=== PATIENT | male | born 1990 | race Hispanic/Latino ===

== ENCOUNTER 2019-01-10 10:22 | Emergency (ER) | payer OTHER ==
[~2019-01-10] VITALS: Ht 165.1 cm; Wt 88.5 kg
--- OUTSIDE RECORDS SUMMARY | 2019-01-10 10:24 | XMS REPORT ---
[facility] Address Unknown Phone Unavailable Care Team Providers Care Material Planner Name Role Phone Unavailable Unavailable Problems This patient has no known problems. Allergies, Adverse Reactions, Alerts This patient has no known allergies or adverse reactions. Medications This patient has no known medications. Encounters Start Date/Time End Date/Time Encounter Type Admission Type Attending [facility] Care Department Encounter ID 2018-01-29 00:00:00 2018-01-29 00:00:00 Outpatient [facility] [id number] 2017-11-02 00:00:00 2017-11-02 00:00:00 Outpatient [facility] [id number] 2017-10-19 13:23:32 2017-10-19 13:23:32 Outpatient [facility] [id number] 2017-09-06 14:11:50 2017-09-06 14:11:50 Outpatient [facility] [id number] 2017-06-15 00:00:00 2017-06-15 00:00:00 Outpatient [facility] [id number] 2017-06-08 10:15:40 2017-06-08 10:15:40 Outpatient [facility] [id number] 2017-06-08 00:00:00 2017-06-08 00:00:00 Outpatient [facility] [id number] 2017-05-08 10:58:53 2017-05-08 10:58:53 Outpatient [facility] [id number] 2017-05-08 00:00:00 2017-05-08 00:00:00 Outpatient [facility] [id number] 2017-04-27 00:00:00 2017-04-27 00:00:00 Outpatient [facility] [id number] 2017-04-05 00:00:00 2017-04-05 00:00:00 Outpatient [facility] [id number] 2017-03-30 16:30:25 2017-03-30 16:30:25 Outpatient [facility] [id number] 2017-03-02 11:37:08 2017-03-02 11:37:08 [facility] [id number]
[2019-01-10] MEDS ORDERED: SODIUM CHLORIDE 0.9% 1000ML 2,000 ML IV STA (10:39)
[2019-01-10 11:05] LABS: CLARITY,URINE SL CLOUDY (CLEAR); COLOR,URINE YELLOW (YELLOW)
[2019-01-10 11:06] LABS: BILIRUBIN,URINE NEGATIVE (NEGATIVE); KETONES,URINE 2+ (NEGATIVE); LEUKOCYTE ESTERASE ,URINE 1+ (NEGATIVE); NITRITE,URINE NEGATIVE (NEGATIVE); PROTEIN,URINE DIPSTICK NEGATIVE (NEGATIVE); URINE UROBILINOGEN 0.2 mg/dL (0.2 - 1)
[2019-01-10 11:07] LABS: AMPHETAMINES SCREEN,URINE NEGATIVE (NEGATIVE); BENZODIAZEPINES SCREEN,URINE NEGATIVE (NEGATIVE); PHENCYCLIDINE SCREEN,URINE NEGATIVE (NEGATIVE)
[2019-01-10 11:22] LABS: BACTERIA,URINE FEW /HPF; EPITHELIAL CELLS,URINE MODERATE /LPF; WBC,URINE (MAN) 21-50 /HPF (0-5)
[2019-01-10] MEDS ORDERED: AZITHROMYCIN 250 MG TAB PO ONE (12:00)
[2019-01-10] MEDS ORDERED: CEFTRIAXONE SOD 1 GM VIAL IM ONE ×2 (12:00→14:00)
[2019-01-10 13:00] LABS: BASOPHILS % 0.3 % (0.0-1.0); EOSINOPHILS # (AUTO) 0.2 (0.0-0.4); EOSINOPHILS % 1.4 % (0.0-6.0); HEMATOCRIT 40.3 % (38.2-49.6); HEMOGLOBIN 14.3 g/dL (14.0-18.0); LYMPHOCYTES % 25.9 % (18.0-39.1); MEAN CORPUSCULAR HEMOGLOBIN 30.4 pg (28-32); MEAN CORPUSCULAR HGB CONC 35.5 g/dL (31-35); MEAN CORPUSCULAR VOLUME 85.6 fL (81-99); MONOCYTES # (AUTO) 0.8 (0.2-0.8); MONOCYTES % 6.8 % (4.4-11.3); NEUTROPHILS # (AUTO) 7.5 (2.1-6.9); NEUTROPHILS % 65.2 % (38.7-80.0); PLATELET COUNT 348 x10e3/uL (140-360); RED BLOOD COUNT 4.71 x10e6/uL (4.3-5.7); RED CELL DISTRIBUTION WIDTH 11.6 % (11.7-14.4)
[2019-01-10 13:14] LABS: ALANINE AMINOTRANSFERASE 13 IU/L (0-55); ALBUMIN 3.8 g/dL (3.5-5.0); ALBUMIN/GLOBULIN RATIO 1.1 (0.8-2.0); ALKALINE PHOSPHATASE 100 IU/L (40-150); ANION GAP 13.9 mmol/L (8-16); BLOOD UREA NITROGEN 8 mg/dL (7-26); BUN/CREATININE RATIO 10 (6-25); CALCIUM 9.8 mg/dL (8.4-10.2); CARBON DIOXIDE 26 mmol/L (22-29); CHLORIDE 97 mmol/L (98-107); EST GLOMERULAR FILTRATION RATE > 60 ML/MIN (60-); POTASSIUM 3.9 mmol/L (3.5-5.1); SODIUM 133 mmol/L (136-145)
[2019-01-10 13:20] LABS: GLUCOSE 442 mg/dL (74-118)
[2019-01-10] MEDS ORDERED: INSULIN REGULAR, HUMAN 100 UNIT/1 ML 3ML VIAL IV ONE (14:30)
== END 2019-01-10 15:16 | disposition home or self-care (01) ==
LOC: ER 10:22
DX: N30.91 Cystitis, unspecified with hematuria (principal); E86.0 Dehydration; E11.65 Type 2 diabetes mellitus with hyperglycemia; E11.22 Type 2 diabetes mellitus with diabetic chronic kidney disease; N18.9 Chronic kidney disease, unspecified; Z89.022 Acquired absence of left finger(s)
CPT/HCPCS: 36415; 80053; 80307; 81001; 82948; 85025; 99284; J0696; J7030

== ENCOUNTER 2019-02-05 23:38 | Inpatient (IN) | payer OTHER ==
[~2019-02-05] VITALS: Ht 167.6 cm; Wt 89.4 kg
[2019-02-06] MEDS ORDERED: ACETAMINOPHEN 325 MG TAB PO ONE
[2019-02-06] MEDS ORDERED: SODIUM CHLORIDE 0.9% 1000ML 1,000 ML IV ONE ×2
[2019-02-06 00:28] LABS: BASOPHILS # (AUTO) 0.1 (0.0-0.1); BASOPHILS % 0.2 % (0.0-1.0); HEMATOCRIT 38.9 % (38.2-49.6); HEMOGLOBIN 14.4 g/dL (14.0-18.0); LYMPHOCYTES # (AUTO) 0.8 (1.0-3.2); LYMPHOCYTES % 2.3 % (18.0-39.1); MEAN CORPUSCULAR HEMOGLOBIN 30.4 pg (28-32); MEAN CORPUSCULAR VOLUME 82.1 fL (81-99); MONOCYTES # (AUTO) 2.6 (0.2-0.8); NEUTROPHILS # (AUTO) 32.3 (2.1-6.9); PLATELET COUNT 341 x10e3/uL (140-360); RED BLOOD COUNT 4.74 x10e6/uL (4.3-5.7); RED CELL DISTRIBUTION WIDTH 11.2 % (11.7-14.4)
[2019-02-06] MEDS ORDERED: PIPER-TAZ 3.375 GM 50 ML IV STA (00:35)
[2019-02-06] MEDS ORDERED: VANCOMYCIN 1GM/NS 250 ML 250 ML IV STA (00:35)
[2019-02-06 00:36] LABS: CLARITY,URINE HAZY (CLEAR); COLOR,URINE YELLOW (YELLOW); LEUKOCYTE ESTERASE ,URINE NEGATIVE (NEGATIVE)
[2019-02-06 00:37] LABS: BILIRUBIN,URINE 1+ (NEGATIVE); KETONES,URINE 3+ (NEGATIVE); NITRITE,URINE NEGATIVE (NEGATIVE); PROTEIN,URINE DIPSTICK TRACE (NEGATIVE); URINE UROBILINOGEN 0.2 mg/dL (0.2 - 1)
[2019-02-06 00:38] LABS: AMPHETAMINES SCREEN,URINE NEGATIVE (NEGATIVE); BENZODIAZEPINES SCREEN,URINE NEGATIVE (NEGATIVE); PHENCYCLIDINE SCREEN,URINE NEGATIVE (NEGATIVE)
[2019-02-06] MEDS ORDERED: ONDANSETRON HCL INJ 2MG/ML 2ML 2 MG/ML VIAL IV STA (00:39)
[2019-02-06 00:47] LABS: BACTERIA,URINE MODERATE /HPF; EPITHELIAL CELLS,URINE FEW /LPF; MUCUS,URINE FEW (RARE); WBC,URINE (MAN) 21-50 /HPF (0-5)
[2019-02-06 00:48] LABS: ALANINE AMINOTRANSFERASE 7 IU/L (0-55); ALBUMIN/GLOBULIN RATIO 1.1 (0.8-2.0); ALKALINE PHOSPHATASE 111 IU/L (40-150); ANION GAP 20.6 mmol/L (8-16); BLOOD UREA NITROGEN 9 mg/dL (7-26); BUN/CREATININE RATIO 10 (6-25); CARBON DIOXIDE 17 mmol/L (22-29); CHLORIDE 94 mmol/L (98-107); EST GLOMERULAR FILTRATION RATE > 60 ML/MIN (60-); POTASSIUM 3.6 mmol/L (3.5-5.1); SODIUM 128 mmol/L (136-145)
[2019-02-06 00:49] LABS: GLUCOSE 493 mg/dL (74-118)
--- NOTE | 2019-02-06 00:52 | Diagnostic Imaging Report ---
Examination: Single AP view of the chest. COMPARISON: None. INDICATION: Fever, pain in boil area IMPRESSION: 1. Lines and Tubes: None 2. Lungs are grossly clear. No consolidation or effusion. 3. Cardiomediastinal silhouette is normal. Pulmonary vasculature is normal. 4. No acute bony abnormalities. Signed by: Dr. Jimmy Espinal M.D. on 02/06/2019 12:49 AM
[2019-02-06] MEDS ORDERED: INSULIN REGULAR, HUMAN 100 UNIT/1 ML 3ML VIAL SQ ONE (01:00)
[2019-02-06] MEDS ORDERED: METFORMIN HCL500 M1 PO (02:09)
[2019-02-06] MEDS ORDERED: BASAGLAR (02:09)
[2019-02-06] MEDS: SODIUM CHLORIDE 0.9% 1000ML 1,000 ML IV SCH ×4 (03:02→21:00)
[2019-02-06 03:05] LABS: BASOPHILS # (AUTO) 0.1 (0.0-0.1); BASOPHILS % 0.2 % (0.0-1.0); EOSINOPHILS # (AUTO) 0.1 (0.0-0.4); EOSINOPHILS % 0.3 % (0.0-6.0); HEMATOCRIT 33.3 % (38.2-49.6); HEMOGLOBIN 12.1 g/dL (14.0-18.0); LYMPHOCYTES # (AUTO) 1.9 (1.0-3.2); MEAN CORPUSCULAR HEMOGLOBIN 30.4 pg (28-32); MEAN CORPUSCULAR HGB CONC 36.3 g/dL (31-35); MEAN CORPUSCULAR VOLUME 83.7 fL (81-99); MONOCYTES # (AUTO) 3.3 (0.2-0.8); MONOCYTES % 8.8 % (4.4-11.3); NEUTROPHILS # (AUTO) 31.7 (2.1-6.9); NEUTROPHILS % 84.3 % (38.7-80.0); RED BLOOD COUNT 3.98 x10e6/uL (4.3-5.7); RED CELL DISTRIBUTION WIDTH 11.2 % (11.7-14.4)
[2019-02-06 03:08] LABS: PLATELET COUNT 295 x10e3/uL (140-360)
[2019-02-06 03:14] LABS: ANION GAP 13.4 mmol/L (8-16); BLOOD UREA NITROGEN 7 mg/dL (7-26); BUN/CREATININE RATIO 10 (6-25); CALCIUM 8.8 mg/dL (8.4-10.2); CARBON DIOXIDE 20 mmol/L (22-29); CHLORIDE 102 mmol/L (98-107); CREATININE, SERUM 0.71 mg/dL (0.72-1.25); EST GLOMERULAR FILTRATION RATE > 60 ML/MIN (60-); GLUCOSE 335 mg/dL (74-118); POTASSIUM 3.4 mmol/L (3.5-5.1); SODIUM 132 mmol/L (136-145)
[2019-02-06] MEDS ORDERED: MORPHINE SULFATE 2 MG/ML SYR 1ML IV PRN (04:00)
[2019-02-06] MEDS ORDERED: DEXTROSE 50% SYRINGE 50 ML IV PRN (04:00)
[2019-02-06] MEDS: VANCOMYCIN 1GM/NS 250 ML 250 ML IV SCH ×2 (05:29→16:12)
[2019-02-06] MEDS: PIPER-TAZ 3.375 GM 50 ML IV SCH ×3 (06:09→21:32)
[2019-02-06] MEDS: METRONIDAZOLE 500MG/NS 100ML 100 ML IV SCH ×5 (06:09→23:35)
[2019-02-06] MEDS ORDERED: INSULIN REGULAR, HUMAN 100 UNIT/1 ML 3ML VIAL SQ SCH (07:30)
--- NOTE | 2019-02-06 07:30 | NUR ---
RECEIVED REPORT FROM JOY VIEIRA. ASSUMED CARE AT THIS TIME, PT RESTING IN BED IN LOW FOWLERS, BREATHING EVEN/UNLABORED, EYES CLOSED, NAD NOTED.
[2019-02-06] MEDS: INSULIN REGULAR, HUMAN 100 UNIT/1 ML 3ML VIAL SQ SCH ×4 (07:50→21:37)
--- NOTE | 2019-02-06 10:01 | NUR ---
DR COLUNGA AT BEDSIDE FOR PATIENT EVAL.
--- NOTE | 2019-02-06 10:40 | NUR ---
INFORMED CONSENT OBTAINED AT THIS TIME, PT AWARE OF RISKS AND BENEFITS OF PROCEDURE, DR. COLUNGA WAS AT BEDSIDE TO DISCUSS PLAN OF CARE.
[2019-02-06] MEDS: ACETAMINOPHEN 325 MG TAB PO PRN ×2 (11:10→23:34)
[2019-02-06] MEDS: ONDANSETRON HCL INJ 2MG/ML 2ML 2 MG/ML VIAL IV PRN (11:11)
[2019-02-06] MEDS: MORPHINE SULFATE INJ 4 MG/ML INJ 1ML IV PRN ×2 (11:11→21:26)
--- NOTE | 2019-02-06 13:00 | NUR ---
OR STAFF AT BEDSIDE AT THIS TIME FOR PT EVAL.
--- NOTE | 2019-02-06 13:08 | NUR ---
ANGELA MARQUES SAFETY INVESTIGATOR AT BEDSIDE AT THIS TIME FOR PT EVAL.
[2019-02-06] MEDS ORDERED: BUPIVACAINE 0.5%/EPI 30 ML SDV INJ ONE (13:17)
[2019-02-06] MEDS ORDERED: VANCOMYCIN 1GM/NS 250 ML 250 ML ONE (16:13)
[2019-02-06] MEDS ORDERED: PROPOFOL IV EMULSION 10 MG/ML 20 ML VIAL ONE (17:11)
[2019-02-06] MEDS ORDERED: SEVOFLURANE INHAL SOLN 250 ML PEN BTL ONE (17:11)
[2019-02-06] MEDS ORDERED: ONDANSETRON HCL INJ 2MG/ML 2ML 2 MG/ML VIAL ONE (17:11)
[2019-02-06] MEDS ORDERED: LIDOCAINE HCL 2% LOCAL INJ 5 ML SDV VIAL INJ ONE (17:11)
[2019-02-06] MEDS ORDERED: ACETAMINOPHEN 1000 MG/100 ML IV ONE (17:11)
[2019-02-06] MEDS ORDERED: DEXAMETHASONE SOD PHOS INJ 4 MG/ML VIAL ONE (17:11)
--- NOTE | 2019-02-06 18:00 | NUR ---
RECEIVED TO ROOM AWAKE, ALERT,ORIENTED X3 IVF INFUSING TO R FA 20G DRESSING TO RECTUM C/D/I VITAL SIGNS STABLE UPDATED ON PLAN OF CARE CALL LIGHT IN REACH BED LOCKED LOW POSITION WILL CONTINUE TO MONITOR
[2019-02-06] MEDS ORDERED: PNEUMOCOCCAL VACCINE POLYVALENT 23 MCG/0.5 ML VIAL IM SCH (18:18)
[2019-02-06 18:26] VITALS: BP 110/62
--- NOTE | 2019-02-06 19:10 | NUR ---
WALKING ROUNDS PERFORMED, RECEIVED PT LAYING SEMI FOWLERS IN BED, AAOX3, RR EVEN AND NON-LABORED, ON RA. NO S/SX OF DISTRESS NOTED. DRESSING TO RECTUM CDI. LEFT PT LAYING SEMI FOWLERS IN BED, BED IN LOW LOCKED POSITION, SIDE RAILS UPX2, CALL LIGHT AND PHONE WITHIN REACH.
--- NOTE | 2019-02-06 19:15 | NUR ---
bedside report given to oncoming shift, pt left in stable condition
[2019-02-06 20:00] VITALS: BP 114/64
[2019-02-06 22:11] VITALS: BP 114/64
--- NOTE | 2019-02-06 22:22 | Operative Report ---
DATE OF PROCEDURE: 02/06/2019 SURGEON: Erik Camargo MD PREOPERATIVE DIAGNOSIS: Perianal abscess. POSTOPERATIVE DIAGNOSES: Perianal abscess. PROCEDURES: Incision and drainage of perianal abscess. FRUIT GROWER: None. ANESTHESIA: General endotracheal. INDICATION: A 28-year-old male, diabetic with 5-day history of perianal swelling and pain consistent with abscess formation. The patient consented for drainage under anesthesia. Attendant risks discussed. DESCRIPTION OF PROCEDURE: The patient was brought to the OR intubated. He was then repositioned to the left lateral with the right side up. The perianal area was prepped with Betadine and draped in sterile fashion. At the 9 o'clock position, 4 cm removed from the anal orifice. There was a area of fluctuance and swelling consistent with the roof of the abscess, which was then anesthetized with 0.5% Marcaine with epinephrine. A radial incision was made depending into the cavity and a large amount of purulent material was evacuated from the abscess. Culture and sensitivity taken with a swab culture specimen. We then used digital exploration to break up all loculations inside the cavity, which was then irrigated and packed with iodoform gauze. Hemostasis achieved. Dressing applied. The patient tolerated the procedure well, was extubated, and transported to recovery room. ESTIMATED BLOOD LOSS: 5 mL. Erik Camargo MD DNL/MODL /[id number]
--- NOTE | 2019-02-06 22:22 | Consultation ---
DATE OF CONSULTATION: 02/06/2019 CHIEF COMPLAINT: Perianal abscess. HISTORY OF PRESENT ILLNESS: This 28-year-old male with 5-day history of perianal swelling, redness, and tenderness consistent with abscess formation. He had fever and chills. Denies vomiting or diarrhea. PAST MEDICAL HISTORY: Significant for diabetes. ALLERGIES: HE HAS NO DRUG ALLERGIES. SOCIAL HABITS: Denies smoking or alcohol abuse. REVIEW OF SYSTEMS: No chest pain. No shortness of breath. PHYSICAL EXAMINATION: VITAL SIGNS: Blood pressure 84/40 with a pulse of 120 and temperature 100. GENERAL: The patient is awake, alert, in moderate to severe discomfort. HEENT: Sclerae anicteric. NECK: Supple. LUNGS: Clear. HEART: Regular rate and rhythm. ABDOMEN: Soft. Anal area revealed a right buttock perianal abscess with fluctuance and significant tenderness. LABORATORY DATA: White cell count 37,000, hemoglobin of 12, and creatinine 0.7. ASSESSMENT: Perianal abscess. PLAN: Incision or drainage under anesthesia. Attendant risks discussed. Erik Camargo MD DNMarc/MODL /[id number]
[2019-02-07] VITALS (8 sets, daily range): BP systolic 112–133; BP diastolic 56–75
[2019-02-07] MEDS: MORPHINE SULFATE INJ 4 MG/ML INJ 1ML IV PRN ×5 (01:29→19:53)
[2019-02-07 03:09] LABS: BASOPHILS # (AUTO) 0.1 (0.0-0.1); BASOPHILS % 0.2 % (0.0-1.0); EOSINOPHILS # (AUTO) 0.1 (0.0-0.4); EOSINOPHILS % 0.3 % (0.0-6.0); HEMATOCRIT 30.7 % (38.2-49.6); HEMOGLOBIN 11.3 g/dL (14.0-18.0); LYMPHOCYTES # (AUTO) 1.2 (1.0-3.2); LYMPHOCYTES % 3.9 % (18.0-39.1); MEAN CORPUSCULAR HEMOGLOBIN 30.8 pg (28-32); MEAN CORPUSCULAR HGB CONC 36.8 g/dL (31-35); MEAN CORPUSCULAR VOLUME 83.7 fL (81-99); MONOCYTES # (AUTO) 1.9 (0.2-0.8); MONOCYTES % 6.3 % (4.4-11.3); NEUTROPHILS # (AUTO) 26.7 (2.1-6.9); PLATELET COUNT 292 x10e3/uL (140-360); RED BLOOD COUNT 3.67 x10e6/uL (4.3-5.7); RED CELL DISTRIBUTION WIDTH 11.4 % (11.7-14.4)
[2019-02-07 03:29] LABS: ALANINE AMINOTRANSFERASE 6 IU/L (0-55); ALBUMIN 2.7 g/dL (3.5-5.0); ALBUMIN/GLOBULIN RATIO 0.8 (0.8-2.0); ALKALINE PHOSPHATASE 76 IU/L (40-150); ANION GAP 13.8 mmol/L (8-16); BLOOD UREA NITROGEN 6 mg/dL (7-26); BUN/CREATININE RATIO 9 (6-25); CALCIUM 9.1 mg/dL (8.4-10.2); CARBON DIOXIDE 18 mmol/L (22-29); CHLORIDE 104 mmol/L (98-107); CREATININE, SERUM 0.67 mg/dL (0.72-1.25); EST GLOMERULAR FILTRATION RATE > 60 ML/MIN (60-); GLUCOSE 272 mg/dL (74-118); MAGNESIUM 1.7 MG/DL (1.3-2.1); POTASSIUM 3.8 mmol/L (3.5-5.1); SODIUM 132 mmol/L (136-145)
[2019-02-07] MEDS: VANCOMYCIN 1GM/NS 250 ML 250 ML IV SCH ×2 (03:34→16:26)
[2019-02-07] MEDS: SODIUM CHLORIDE 0.9% 1000ML 1,000 ML IV SCH ×4 (03:35→23:49)
[2019-02-07] MEDS: PIPER-TAZ 3.375 GM 50 ML IV SCH ×3 (05:08→22:12)
[2019-02-07] MEDS: METRONIDAZOLE 500MG/NS 100ML 100 ML IV SCH ×4 (06:04→23:49)
[2019-02-07 07:42] LABS: LYMPHOCYTES % (MANUAL) 2 % (19-48); MONOCYTES % (MANUAL) 10 % (3.4-9.0); NEUTROPHILS % (MANUAL) 88 % (40-74)
[2019-02-07 07:43] LABS: PLATELET ESTIMATE ADEQUATE; PLATELET MORPHOLOGY COMMENT NORMAL; RBC MORPHOLOGY COMMENT NORMAL
[2019-02-07] MEDS: INSULIN GLARGINE 100 UNITS/ML VIAL SQ SCH ×2 (08:05→16:27)
[2019-02-07] MEDS: INSULIN REGULAR, HUMAN 100 UNIT/1 ML 3ML VIAL SQ SCH ×4 (08:05→20:50)
[2019-02-07] MEDS ORDERED: MORPHINE SULFATE INJ 10 MG/ML ONE (14:16)
[2019-02-07] MEDS ORDERED: FENTANYL CITRATE/PF 100MCG/2 ML INJ ONE (14:16)
[2019-02-07] MEDS ORDERED: MIDAZOLAM HCL 5MG/ML 2ML VIAL ONE (14:16)
--- NOTE | 2019-02-07 15:44 | NUR ---
lorrie jones regarding pt c/o increased swelling in perianal area. awaiting for call back observed site. swelling evident on site.
--- NOTE | 2019-02-07 15:55 | NUR ---
md jones aware. states he will make rounds later today to see pt . no orders given
--- NOTE | 2019-02-07 18:12 | NUR ---
Dr. Camargo removed approx 4 inches of packing and wound was viewed. Edema present and patient claims the wound is very painful. Will medicate when appropriate.
[2019-02-07] MEDS: ONDANSETRON HCL INJ 2MG/ML 2ML 2 MG/ML VIAL IV PRN ×2 (18:45→23:16)
[2019-02-07] MEDS: ACETAMINOPHEN 325 MG TAB PO PRN (19:52)
[2019-02-07] MEDS ORDERED: SODIUM CHLORIDE 0.9% 50ML 50 ML ONE (20:10)
[2019-02-07] MEDS ORDERED: IOPAMIDOL 370 MG/ML 200 ML INFUS..BTL INJ ONE (20:10)
--- NOTE | 2019-02-07 20:30 | NUR ---
Pt is off to the unit for ct in a wheel chair.
--- NOTE | 2019-02-07 20:50 | NUR ---
PT IS BACK TO THE UNIT [facility] STABLE CONDITION.
--- NOTE | 2019-02-07 21:00 | NUR ---
Assessment done.no resp.distress.pt is having anxiety and c/o numbness to right arm below elbow.notified to lidia jhaveri.ordered diclofenac gel.carried out the order.family member at bed side.bed locked and in lowest position.phone and call light within reach.instructed to call for assistance as needed.
[2019-02-07] MEDS ORDERED: DICLOFENAC SOD 1% GEL 100 GM TUBE TP PRN (21:15)
--- NOTE | 2019-02-07 23:28 | NUR ---
Patient is nauseated .medicated with zofran 4mg iv given.
[2019-02-08] VITALS (9 sets, daily range): BP systolic 122–142; BP diastolic 69–85
[2019-02-08] MEDS: MORPHINE SULFATE INJ 4 MG/ML INJ 1ML IV PRN ×4 (00:20→20:41)
--- NOTE | 2019-02-08 01:19 | NUR ---
Pt is resting comfortably in the bed.
[2019-02-08] MEDS: VANCOMYCIN 1GM/NS 250 ML 250 ML IV SCH ×2 (03:54→15:07)
[2019-02-08] MEDS: ACETAMINOPHEN 325 MG TAB PO PRN (04:00)
--- NOTE | 2019-02-08 04:00 | NUR ---
Blood brian and sent to the lab.pt tolerated well.pt could move his right arm now.no pain voiced.ice pack applied to the dorian rectum area.stable condition.
[2019-02-08 04:01] LABS: BASOPHILS # (AUTO) 0.1 (0.0-0.1); BASOPHILS % 0.2 % (0.0-1.0); EOSINOPHILS % 0.1 % (0.0-6.0); HEMATOCRIT 31.8 % (38.2-49.6); HEMOGLOBIN 11.4 g/dL (14.0-18.0); LYMPHOCYTES # (AUTO) 2.2 (1.0-3.2); LYMPHOCYTES % 8.3 % (18.0-39.1); MEAN CORPUSCULAR HEMOGLOBIN 30.2 pg (28-32); MEAN CORPUSCULAR HGB CONC 35.8 g/dL (31-35); MEAN CORPUSCULAR VOLUME 84.1 fL (81-99); MONOCYTES # (AUTO) 2.3 (0.2-0.8); NEUTROPHILS # (AUTO) 21.2 (2.1-6.9); NEUTROPHILS % 81.4 % (38.7-80.0); PLATELET COUNT 309 x10e3/uL (140-360); RED BLOOD COUNT 3.78 x10e6/uL (4.3-5.7); RED CELL DISTRIBUTION WIDTH 11.5 % (11.7-14.4)
[2019-02-08 04:18] LABS: ANION GAP 15.1 mmol/L (8-16); BLOOD UREA NITROGEN < 5 mg/dL (7-26); CALCIUM 8.8 mg/dL (8.4-10.2); CARBON DIOXIDE 21 mmol/L (22-29); CHLORIDE 105 mmol/L (98-107); CREATININE, SERUM 0.58 mg/dL (0.72-1.25); EST GLOMERULAR FILTRATION RATE > 60 ML/MIN (60-); GLUCOSE 144 mg/dL (74-118); MAGNESIUM 1.5 MG/DL (1.3-2.1); POTASSIUM 3.1 mmol/L (3.5-5.1); SODIUM 138 mmol/L (136-145)
[2019-02-08 04:19] LABS: BUN/CREATININE RATIO 9 (6-25)
[2019-02-08] MEDS: METRONIDAZOLE 500MG/NS 100ML 100 ML IV SCH ×2 (05:23→12:34)
--- NOTE | 2019-02-08 05:26 | NUR ---
Dressing changed.mild drainage noted.
[2019-02-08] MEDS: SODIUM CHLORIDE 0.9% 1000ML 1,000 ML IV SCH ×3 (05:48→18:31)
[2019-02-08] MEDS: PIPER-TAZ 3.375 GM 50 ML IV SCH ×2 (05:48→13:57)
--- NOTE | 2019-02-08 06:50 | NUR ---
Report given to the oncoming rn.walking rounds done.stable condition.
--- NOTE | 2019-02-08 07:01 | Diagnostic Imaging Report ---
EXAMINATION: CT of the pelvis with contrast. TECHNIQUE: Spiral CT images of the pelvis were performed from the iliac crests to the lesser trochanters after the intravenous administration of 100 cc of Isovue-370 and the oral administration of water. Coronal and sagittal reformatted images were obtained. COMPARISON: None. CLINICAL HISTORY:Access/boil on buttocks, status post incision and drainage 02/06/2019 DISCUSSION: PELVIS: PELVIC ORGANS/BLADDER: Bladder is moderately to markedly distended, without focal lesions or wall thickening. Prostate is unremarkable. PERITONEUM/RETROPERITONEUM: No free air or fluid. LYMPH NODES: Enlarged right inguinal lymph node which measures 1.5 cm in short axis. No distal retroperitoneal, pelvic or left inguinal adenopathy. VESSELS: The visualized portions of the distal aorta, and iliac vessels are unremarkable. GI TRACT: The visualized bowel shows no dilation or obstruction. Appendix is well identified and normal in caliber. BONES AND SOFT TISSUE: No aggressive lytic lesions. 3.3 x 2.2 x 2.3 cm focal air and debris collection in the medial right intergluteal fold (series 2, image 54), likely representing the previously drained perirectal abscess. Multiple linear air collections and associated subcutaneous fat stranding extend anteriorly in the perineum to the base of the scrotum (series 2, image 57). No air is noted inside the scrotum. No well-defined enhancing fluid collections. IMPRESSION: 1. 3.3 cm focal air and debris collection in the medial right intraluminal fold likely represents the previously drained perirectal abscess. 2. Multiple linear air collections and associated subcutaneous fat stranding extending anteriorly in the perineum to the base of the scrotum. 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 3. Enlarged right inguinal lymph node, likely reactive. 4. Findings discussed with the patient's nurse, Ms. Rollins, at time of dictation, who will notify ordering physician Dr. Camargo. Signed by: Dr. Jimmy Espinal M.D. on 02/08/2019 6:57 AM
--- NOTE | 2019-02-08 07:05 | NUR ---
pt resting in bed comfortably. states pain to groin is at a tolerable level 5/10. pt is on prn morphine q4hrs. anal dressing at this time is dry and intact pt has a right fa 20 with fluids at 150 cc.hr. site is clean and dry will continue to monitor closely, side railsx2, bed wheels locked, call light is within easy reach, instructed to call for assistance if needed is at bedside
--- NOTE | 2019-02-08 07:16 | NUR ---
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 awaiting for call back
[2019-02-08] MEDS: INSULIN REGULAR, HUMAN 100 UNIT/1 ML 3ML VIAL SQ SCH ×4 (08:19→20:41)
[2019-02-08] MEDS: INSULIN GLARGINE 100 UNITS/ML VIAL SQ SCH ×2 (08:20→16:26)
--- NOTE | 2019-02-08 08:46 | NUR ---
REPAGED MD COLUNGA REGARDING CT RESULTS . AWAITING FOR CALL BACK
--- NOTE | 2019-02-08 09:01 | NUR ---
NOTIFIED MD COLUNGA REGARDING RESULTS OF CT. NO ORDERS RECEIVED
[2019-02-08] MEDS ORDERED: POTASSIUM CHLORIDE 20 MEQ TAB CR PO ONE (10:30)
[2019-02-08] MEDS ORDERED: MORPHINE SULFATE INJ 4 MG/ML INJ 1ML IV PRN (10:45)
[2019-02-08] MEDS ORDERED: LIDOCAINE HCL 2% LOCAL INJ 5 ML SDV VIAL INJ ONE (11:16)
[2019-02-08] MEDS ORDERED: SEVOFLURANE INHAL SOLN 250 ML PEN BTL ONE (11:16)
[2019-02-08] MEDS ORDERED: PROPOFOL IV EMULSION 10 MG/ML 20 ML VIAL ONE (11:16)
[2019-02-08] MEDS ORDERED: MIDAZOLAM HCL 2 MG/2 ML VIAL ONE (11:33)
[2019-02-08] MEDS ORDERED: KETAMINE HCL INJ 50 MG/ML 10 ML VIAL ONE (11:33)
[2019-02-08] MEDS ORDERED: FENTANYL CITRATE/PF 100MCG/2 ML INJ ONE (11:33)
--- NOTE | 2019-02-08 11:49 | NUR ---
notified pipe coverer and insulator celestina of pt severe pain new orders for one time dose received
[2019-02-08] MEDS ORDERED: MORPHINE SULFATE INJ 4 MG/ML INJ 1ML IV ONE (12:30)
--- NOTE | 2019-02-08 16:02 | NUR ---
pt off unit for sx via bed
[2019-02-08] MEDS ORDERED: BUPIVACAINE 0.5%/EPI 30 ML SDV INJ ONE (16:41)
[2019-02-08] MEDS ORDERED: HYDROMORPHONE 2MG/ML 2 MG/ML ML ONE (17:31)
--- NOTE | 2019-02-08 18:01 | NUR ---
received report from mariana in pacu awaiting for pt to arrive to floor
--- NOTE | 2019-02-08 18:14 | NUR ---
PT BACK TO FLOOR AROUSABLE TO VERBAL STIMULI PT IS RESTING COMFORTABLY IN BED IV CONNECTED BACK TO RESUME VAN ABX SITE IS CLEAN AND DRY PT IS ON 02 2L SAT 98% DRESSING TO PERINEAL AREA IS DRY AND INTACT WILL CONTINUE TO MONITOR CLOSELY SIDE RAILSX2, BED WHEELS LOCKED, CALL LIGHT IS WITHIN EASY REACH, INSTRUCTED TO CALL FOR ASSISTANCE IF NEEDED
[2019-02-08] MEDS: ONDANSETRON HCL INJ 2MG/ML 2ML 2 MG/ML VIAL IV PRN (18:31)
--- NOTE | 2019-02-08 19:10 | NUR ---
Report taken from morning rn.walking rounds done.pt is sleeping in the bed.on nasal cannula 2l o2.family member at bed side.phone and call light within reach.informed to call for assistance as needed.stable condition.
[2019-02-08] MEDS ORDERED: LACTATED RINGER'S 1,000 ML IV SCH ×2 (20:45→21:00)
--- NOTE | 2019-02-08 20:45 | Consultation ---
DATE OF CONSULTATION: REASON FOR CONSULTATION: Cellulitis abscess, concerned about Ingrid's disease. HISTORY OF PRESENT ILLNESS: This patient, who is a 28-year-old [place] male, history of diabetes, comes in with redness and swelling of his scrotum area, had small abscess. The patient was started on metronidazole, Zosyn, vancomycin, but he continued to have pain. There is still redness and swelling. Infectious Disease was asked to see the patient. The patient denies any history of trauma. The patient is currently lying in the bed comfortably. PAST MEDICAL HISTORY: Diabetes mellitus. PAST SURGICAL HISTORY: He had recently I and D of perianal abscess. ALLERGIES: NKA. SOCIAL HISTORY: There is no smoking, drug abuse, or alcohol abuse. FAMILY HISTORY: Otherwise unremarkable. REVIEW OF SYSTEMS: GENERAL: He is just not feeling well. HEENT: There is no headache, visual changes, hearing changes. GI: There is no nausea. No vomiting. No diarrhea. CARDIAC: There is no arrhythmia. NEURO: No seizure activity. SKIN: There is no rash except for as mentioned. JOINT: There is no erythema or edema. A 14-point system reviewed, all negative. MEDICATION LIST: Reviewed. Please refer to the note in the chart. PHYSICAL EXAMINATION: GENERAL: He is currently alert, oriented, does not seem to be in acute distress. VITAL SIGNS: Stable, currently afebrile. HEENT: Normocephalic. Not icteric. NECK: Supple. CHEST: Clear bilateral. HEART: S1, S2. No S3, S4, or murmur. ABDOMEN: Soft. Bowel sounds present. : Scrotum, there is redness, there is erythema, there is edema, and it is a bit hard. The remaining physical examination is totally negative. LABORATORY DATA: Reviewed. When he first came, his white count was 36.3, came down to 26.0, his hemoglobin 14. His sodium 130, potassium 3.1, creatinine 0.58, glucose of 144. IMPRESSION: I am concerned about necrotizing soft tissue infection. I would recommend to discontinue metronidazole, discontinue Zosyn, add clindamycin 900 IV q.8 hours, add cefepime 2 g q.8 hours. Maximize the vancomycin level. We will do vancomycin 2 g q.12 hours, follow the trough. The patient will need further I and D. We will follow. MD ALIVIA Samuels /[id number]
[2019-02-08] MEDS: CEFEPIME 2 GM/NS 0.9% 100 ML 100 ML IV SCH (21:30)
[2019-02-08] MEDS ORDERED: CEFEPIME HCL 2 GM VIAL IV SCH (22:00)
--- NOTE | 2019-02-08 22:00 | NUR ---
ordered one bag LR bolus.
[2019-02-08] MEDS: CLINDAMYCIN PHOS 900MG/ 50ML 50 ML IV SCH (22:21)
[2019-02-08] MEDS ORDERED: LACTATED RINGER'S 1,000 ML IV ONE (22:30)
--- NOTE | 2019-02-08 23:19 | NUR ---
Voided.had dinner.bed locked and in lowest position.phone and call light within reach.informed to call for assistance as needed.
[2019-02-09] VITALS (8 sets, daily range): BP systolic 112–138; BP diastolic 66–82
[2019-02-09] MEDS: ACETAMINOPHEN 325 MG TAB PO PRN (00:02)
[2019-02-09] MEDS: LORAZEPAM INJ 2 MG/ML VIAL IV PRN (00:14)
--- NOTE | 2019-02-09 00:40 | NUR ---
Pt has anxiety.medicated with ativan 0.5 mg iv.
--- NOTE | 2019-02-09 01:05 | Operative Report ---
DATE OF PROCEDURE: 02/08/2019 SURGEON: Erik Camargo MD PREOPERATIVE DIAGNOSIS: Perineal infection. POSTOPERATIVE DIAGNOSIS: Ingrid gangrene and perineum. 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 ANESTHESIA: General, Dr. Bauer. INDICATION: A 28-year-old male with history of perianal abscess, which has progressed to the perineal area. He had incisional drainage a couple of days ago. Repeat CT scan show evidence of spreading toward the base of the scrotum. The patient consented for debridement under anesthesia, attendant risks discussed. DESCRIPTION OF PROCEDURE: The patient was brought to OR, intubated in supine position. He was then repositioned to a lithotomy. The perineal area was prepped with Betadine and draped in sterile fashion. An area of fluctuance in the midline just at the base of the scrotum was opened in vertical direction entering an abscess cavity of cloudy dishwater fluid consistent with fasciitis. The vertical incision was extended in the caudad direction connecting with the previous anal abscess drainage. The necrotic fascia and subcutaneous fat was excised with sharp dissection using the cutting mode of the Bovie, extending from the base of the scrotum of both the inguinal canal and extended downwards toward the perianal region. All necrotic tissue was removed and two bleeding points found and cauterized. Hemostasis achieved. Wound was irrigated with 1 L of Betadine saline solution. The wound was packed with Kerlix roll, soaked in Betadine, dressing applied. The patient tolerated the procedure well, was extubated and transported to recovery room. ESTIMATED BLOOD LOSS: 10 mL. Erik Camargo MD DNL/MODL /[id number]
[2019-02-09] MEDS: SODIUM CHLORIDE 0.9% 1000ML 1,000 ML IV SCH ×4 (02:36→21:32)
[2019-02-09] MEDS: HYDROCODONE/APAP 7.5MG-325MG 1 EA TAB PO PRN (02:45)
--- NOTE | 2019-02-09 03:20 | NUR ---
BLOOD ESTUARDO AND SENT TO THE LAB .PT TOLERATED WELL.
[2019-02-09] MEDS ORDERED: VANCOMYCIN HCL 2 GM in SODIUM CHLORIDE 0.9% 500ML 400 ML IV SCH (04:00)
[2019-02-09] MEDS ORDERED: VANCOMYCIN HCL 2 GM in SODIUM CHLORIDE 0.9% 500ML 500 ML IV SCH (04:00)
[2019-02-09 04:07] LABS: BASOPHILS # (AUTO) 0.1 (0.0-0.1); BASOPHILS % 0.3 % (0.0-1.0); EOSINOPHILS % 0.1 % (0.0-6.0); HEMOGLOBIN 11.1 g/dL (14.0-18.0); LYMPHOCYTES % 10.4 % (18.0-39.1); MEAN CORPUSCULAR HEMOGLOBIN 30.2 pg (28-32); MEAN CORPUSCULAR HGB CONC 34.7 g/dL (31-35); MONOCYTES # (AUTO) 2.9 (0.2-0.8); MONOCYTES % 10.2 % (4.4-11.3); NEUTROPHILS # (AUTO) 22.4 (2.1-6.9); NEUTROPHILS % 77.8 % (38.7-80.0); PLATELET COUNT 318 x10e3/uL (140-360); RED BLOOD COUNT 3.68 x10e6/uL (4.3-5.7); RED CELL DISTRIBUTION WIDTH 11.6 % (11.7-14.4)
[2019-02-09 04:30] LABS: BLOOD UREA NITROGEN < 5 mg/dL (7-26); CALCIUM 8.3 mg/dL (8.4-10.2); CARBON DIOXIDE 20 mmol/L (22-29); CHLORIDE 102 mmol/L (98-107); EST GLOMERULAR FILTRATION RATE > 60 ML/MIN (60-); GLUCOSE 131 mg/dL (74-118); SODIUM 136 mmol/L (136-145)
[2019-02-09 04:36] LABS: BUN/CREATININE RATIO 8 (6-25)
[2019-02-09] MEDS: VANCOMYCIN HCL 2 GM in SODIUM CHLORIDE 0.9% 500ML 500 ML IV SCH ×2 (04:42→16:46)
[2019-02-09] MEDS: CLINDAMYCIN PHOS 900MG/ 50ML 50 ML IV SCH ×3 (05:42→21:15)
[2019-02-09] MEDS: CEFEPIME 2 GM/NS 0.9% 100 ML 100 ML IV SCH ×3 (06:15→22:14)
--- NOTE | 2019-02-09 06:17 | NUR ---
ordered LR 500ml bolus iv and kcl [id number] piggy bags.
--- NOTE | 2019-02-09 06:50 | NUR ---
REPORT GIVEN TO THE ONCOMING RN.WALKING ROUNDS DONE.
[2019-02-09] MEDS ORDERED: POTASSIUM CHLORIDE 20 MEQ TAB CR PO STA (06:55)
--- NOTE | 2019-02-09 07:17 | NUR ---
SPOKE WITH MYRA MILLER REGARDING POTASSIUM REPLACEMENT ORDER OF 60 PO WITH ADDITIONAL 30 IV ORDERED BY MD COLUNGA EARLIER TODAY FREELANCE INTERPRETER/TRANSLATOR STATES 60 PO IS FINE WILL CANCEL IV DOSE REPLACEMENT PT IS RESTING IN BED COMFORTABLY, IV TO THE LEFT FA 20 RUNNING WITH VANC AT THIS TIME, SITE IS CLEAN AND DRY PT IS IN NO S.S OF DISTRESS WILL CONTINUE TO MONITOR PT CLOSELY, SIDE RAILSX2, BED WHEELS LOCKED, CALL LIGHT IS WITHIN EASY REACH, INSTRUCTED TO CALL FOR ASSISTANCE IF NEEDED
[2019-02-09] MEDS ORDERED: LACTATED RINGER'S 500 ML IV ONE ×2 (08:00→12:15)
[2019-02-09] MEDS: INSULIN GLARGINE 100 UNITS/ML VIAL SQ SCH ×2 (08:18→16:50)
[2019-02-09] MEDS: MULTIVITAMINS/MINERALS TAB PO SCH (08:18)
[2019-02-09] MEDS: ZINC SULFATE 220 MG CAP PO SCH (08:18)
[2019-02-09] MEDS: OYST-CAL-D 500MG TABLET PO SCH ×2 (08:18→16:46)
[2019-02-09] MEDS: ASCORBIC ACID 500 MG TAB PO SCH ×2 (08:18→16:46)
[2019-02-09] MEDS: INSULIN REGULAR, HUMAN 100 UNIT/1 ML 3ML VIAL SQ SCH ×4 (08:18→21:00)
[2019-02-09] MEDS: MAGNESIUM OXIDE 400 MG TAB PO SCH ×2 (08:18→16:46)
[2019-02-09] MEDS ORDERED: POTASSIUM CHLORIDE 10MEQ/100ML 300 ML IV ONE (09:00)
[2019-02-09] MEDS ORDERED: LACTATED RINGER'S 500 ML INJ ONE (10:45)
--- NOTE | 2019-02-09 12:13 | NUR ---
SPOKE WITH MD COLUNGA REGARDING PT UPDATE. STATES TO GIVE 500CC LEFT OF LR IF PT CONTINUES TO BE TACHYCARDIC AFTER 1ST 500CC BOLUS 500CC BOLUS COMPLETE .PT REMAINS IN THE 110. SECOND BOLUS STARTED PT IS RESTING COMFORTABLY WILL CONTINUE TO MONITOR
--- NOTE | 2019-02-09 12:29 | NUR ---
DRESSING TO THE PERINEAL AREA CHANGED BETADINE WET TO DRY. PT TOLERATED WELL BUT STATES PAIN UPON CHANGING DRESSING WILL MEDICATE WITH PRN MORPHINE AT THIS TIME
[2019-02-09] MEDS: MORPHINE SULFATE INJ 4 MG/ML INJ 1ML IV PRN ×3 (12:33→23:35)
[2019-02-09 13:42] LABS: RBC MORPHOLOGY COMMENT NORMAL
[2019-02-09 13:43] LABS: PLATELET ESTIMATE ADEQUATE; PLATELET MORPHOLOGY COMMENT NORMAL
[2019-02-09] MEDS: ONDANSETRON HCL INJ 2MG/ML 2ML 2 MG/ML VIAL IV PRN ×2 (19:34→23:35)
--- NOTE | 2019-02-09 19:45 | NUR ---
PAIN VOICED 04/02.MEDICATED WITH MORPHINE 4MG IV.ASSESSMENT DONE.NO RESP.DISTRESS.AMBULATES .VOIDED.HAD BM.BED LOCKED AND IN LOWEST POSITION.PHONE AND CALL LIGHT WITHIN REACH.INSTRUCTED TO CALL FOR ASSISTANCE NEEDED.
[2019-02-10] VITALS (7 sets, daily range): BP systolic 134–144; BP diastolic 82–88
[2019-02-10] MEDS: VANCOMYCIN HCL 2 GM in SODIUM CHLORIDE 0.9% 500ML 500 ML IV SCH ×2 (04:07→18:00)
[2019-02-10 04:09] LABS: BASOPHILS # (AUTO) 0.1 (0.0-0.1); BASOPHILS % 0.4 % (0.0-1.0); EOSINOPHILS # (AUTO) 0.2 (0.0-0.4); EOSINOPHILS % 0.8 % (0.0-6.0); HEMATOCRIT 30.3 % (38.2-49.6); LYMPHOCYTES # (AUTO) 3.1 (1.0-3.2); MEAN CORPUSCULAR HEMOGLOBIN 30.6 pg (28-32); MEAN CORPUSCULAR HGB CONC 36.3 g/dL (31-35); MEAN CORPUSCULAR VOLUME 84.4 fL (81-99); MONOCYTES # (AUTO) 2.5 (0.2-0.8); MONOCYTES % 11.3 % (4.4-11.3); NEUTROPHILS # (AUTO) 16.2 (2.1-6.9); NEUTROPHILS % 72.2 % (38.7-80.0); PLATELET COUNT 377 x10e3/uL (140-360); RED BLOOD COUNT 3.59 x10e6/uL (4.3-5.7); RED CELL DISTRIBUTION WIDTH 11.7 % (11.7-14.4)
[2019-02-10] MEDS: LORAZEPAM INJ 2 MG/ML VIAL IV PRN (04:18)
[2019-02-10 04:27] LABS: ANION GAP 13.1 mmol/L (8-16); BLOOD UREA NITROGEN < 5 mg/dL (7-26); CALCIUM 8.3 mg/dL (8.4-10.2); CARBON DIOXIDE 20 mmol/L (22-29); CHLORIDE 103 mmol/L (98-107); CREATININE, SERUM 0.61 mg/dL (0.72-1.25); EST GLOMERULAR FILTRATION RATE > 60 ML/MIN (60-); GLUCOSE 128 mg/dL (74-118); POTASSIUM 3.1 mmol/L (3.5-5.1); SODIUM 133 mmol/L (136-145)
[2019-02-10 04:29] LABS: BUN/CREATININE RATIO 8 (6-25)
[2019-02-10] MEDS: CLINDAMYCIN PHOS 900MG/ 50ML 50 ML IV SCH ×3 (05:04→22:17)
[2019-02-10] MEDS: CEFEPIME 2 GM/NS 0.9% 100 ML 100 ML IV SCH ×3 (05:37→21:26)
[2019-02-10] MEDS: SODIUM CHLORIDE 0.9% 1000ML 1,000 ML IV SCH ×3 (05:37→18:20)
--- NOTE | 2019-02-10 06:50 | NUR ---
Bed side report given to the oncoming rn.walking round done.stable condition.
[2019-02-10] MEDS ORDERED: POTASSIUM CHLORIDE 20 MEQ TAB CR PO NR (08:00)
[2019-02-10] MEDS: INSULIN REGULAR, HUMAN 100 UNIT/1 ML 3ML VIAL SQ SCH ×4 (08:30→21:00)
[2019-02-10] MEDS: INSULIN GLARGINE 100 UNITS/ML VIAL SQ SCH ×2 (09:00→21:00)
[2019-02-10] MEDS: OYST-CAL-D 500MG TABLET PO SCH ×2 (10:00→21:25)
[2019-02-10] MEDS: ZINC SULFATE 220 MG CAP PO SCH (10:00)
[2019-02-10] MEDS: ASCORBIC ACID 500 MG TAB PO SCH ×2 (10:00→21:25)
[2019-02-10] MEDS: MULTIVITAMINS/MINERALS TAB PO SCH (10:00)
[2019-02-10] MEDS: MAGNESIUM OXIDE 400 MG TAB PO SCH ×2 (10:00→17:00)
[2019-02-10 13:17] LABS: EOSINOPHILS % (MANUAL) 2 % (0-7); LYMPHOCYTES % (MANUAL) 12 % (19-48); MONOCYTES % (MANUAL) 10 % (3.4-9.0); NEUTROPHILS % (MANUAL) 75 % (40-74); PLATELET ESTIMATE ADEQUATE; PLATELET MORPHOLOGY COMMENT NORMAL; RBC MORPHOLOGY COMMENT NORMAL
[2019-02-10] MEDS: MORPHINE SULFATE INJ 4 MG/ML INJ 1ML IV PRN ×2 (15:36→23:09)
[2019-02-10] MEDS: ONDANSETRON HCL INJ 2MG/ML 2ML 2 MG/ML VIAL IV PRN ×2 (15:36→23:11)
[2019-02-10] MEDS ORDERED: CLONAZEPAM 0.5 MG TAB PO SCH (17:00)
[2019-02-10] MEDS: CLONAZEPAM 0.5 MG TAB PO PRN (18:15)
--- NOTE | 2019-02-10 18:48 | NUR ---
Old dressing dressing removed, wounds cleaned with NS and packed with 1/2 inch of iodoform. Pt tolerated well.
--- NOTE | 2019-02-10 19:00 | NUR ---
RECEIVED REPORT FROM DAY NURSE. PATIENT IS RESTING COMFORTABLY IN BED. BED IS IN LOWEST POSITION AND CALL MONROY IS WITHIN REACH. WILL CONTINUE TO MONITOR PATIENT.
[2019-02-10] MEDS ORDERED: MIRTAZAPINE 15 MG TAB PO SCH (21:00)
[2019-02-10] MEDS: CLONAZEPAM 0.5 MG TAB PO SCH (21:25)
[2019-02-11] VITALS (8 sets, daily range): BP systolic 129–140; BP diastolic 76–92
[2019-02-11] MEDS: SODIUM CHLORIDE 0.9% 1000ML 1,000 ML IV SCH ×4 (01:00→21:00)
--- NOTE | 2019-02-11 03:07 | Consultation ---
DATE OF CONSULTATION: 02/10/2019 Psychiatric Consultation REASON FOR CONSULTATION: To evaluate the patient's anxiety. HISTORY OF PRESENT ILLNESS: The patient is a 28-year-old male, admitted to the hospital for leukocytosis. Psychiatric consultation was called to evaluate patient's mood. As per the medical record, the patient has history of diabetes. Upon evaluation today, the patient is found to be in the room with his , who is alert, awake, and oriented to situation. The patient states he has been feeling very anxious, as he does not like being in a hospital. His mom here in the recent past. The patient claims he is feeling hopeless and helpless, but denies any suicidal or homicidal ideation. He denies any hallucination. He admits to having issues with sleep and appetite. Collaborative report from the , who reported that the patient has anger issues almost everyday and mood swings. The patient thought process is coherent and linear. Speech is regular rate and rhythm. The patient does not elicit any grandiose thinking. PAST PSYCHIATRIC HISTORY: Patient reports history of anxiety and depression for many years. He admits to attempted suicide once in the past. He drinks socially. He takes marijuana. FAMILY HISTORY: Patient's mom attempted suicide in the past. SOCIAL HISTORY: The patient lives with his dad and his . MENTAL STATUS EXAMINATION: The patient is a young male. He is alert, awake, and oriented to situation. Thought process is concrete. No delusion elicited. Mood is anxious and depressed. Denies suicidal or homicidal ideation. Denies any hallucination. No paranoia. Insight and judgment are fair. CURRENT MEDICATION: 1. Insulin. 2. Vitamin C. 3. Magnesium sulfate. 4. Multivitamin. 5. Magnesium oxide. 6. Cefepime. 7. Clindamycin. 8. Ativan 0.5 mg IV q.6 hours p.r.n. 9. Vancomycin. 10. Morphine. 11. Ondansetron. 12. [place]. 13. Acetaminophen. 14. Voltaren. 15. Sodium chloride. 16. Insulin. 17. Calcium. 18. Pneumovax. 19. Dextrose. LABORATORY DATA: Current labs, WBC 22.42, RBC 3.59, hemoglobin 11, hematocrit 30.3, platelets 377. Sodium 133, potassium 3.1, chloride 103, CO2 20, BUN less than 5, creatinine 0.61. ASSESSMENT: 1. Major depressive disorder, recurrent. 2. Panic disorder with agoraphobia. 3. Cannabinoid abuse. PLAN: 1. Add Klonopin 0.5 mg three times a day as needed. 2. Continue Ativan 0.5 mg IV q.6 hours p.r.n. 3. Add Remeron 7.5 mg p.o. at bedtime. 4. Monitor for mood. 5. Supportive therapy. 6. Recommend total abstinence from alcohol and drugs. Thank you for the consultation. Dictated by Elvira Baker PA-C Anuja Huddleston MD QTV/MODL /[id number]
[2019-02-11] MEDS: VANCOMYCIN HCL 2 GM in SODIUM CHLORIDE 0.9% 500ML 500 ML IV SCH ×2 (03:37→16:19)
[2019-02-11] MEDS: CEFEPIME 2 GM/NS 0.9% 100 ML 100 ML IV SCH ×3 (05:23→22:10)
[2019-02-11] MEDS: CLINDAMYCIN PHOS 900MG/ 50ML 50 ML IV SCH ×3 (06:09→21:11)
--- NOTE | 2019-02-11 07:11 | NUR ---
PT ALERT RESP EVEN AND UNLABORED NO C/O PAIN WHEN ASKED PT ABLE TO MAKE NEEDS KNOWN, CALL LIGHT IN REACH. DRESSING CLEAN AND INTACT. WILL CONT TO MONITOR.
--- NOTE | 2019-02-11 07:19 | NUR ---
REPORT GIVEN TO DAY NURSE. PATIENT IS RESTING IN BED. BED IS IN LOWEST POSITION AND CALL MONROY IS WITH REACH.
[2019-02-11 08:06] LABS: BASOPHILS # (AUTO) 0.1 (0.0-0.1); BASOPHILS % 0.5 % (0.0-1.0); EOSINOPHILS # (AUTO) 0.3 (0.0-0.4); EOSINOPHILS % 1.6 % (0.0-6.0); HEMATOCRIT 32.9 % (38.2-49.6); HEMOGLOBIN 11.2 g/dL (14.0-18.0); LYMPHOCYTES # (AUTO) 3.1 (1.0-3.2); LYMPHOCYTES % 16.1 % (18.0-39.1); MEAN CORPUSCULAR HEMOGLOBIN 29.6 pg (28-32); MEAN CORPUSCULAR VOLUME 86.8 fL (81-99); MONOCYTES # (AUTO) 1.9 (0.2-0.8); MONOCYTES % 9.7 % (4.4-11.3); NEUTROPHILS # (AUTO) 13.7 (2.1-6.9); NEUTROPHILS % 70.2 % (38.7-80.0); PLATELET COUNT 423 x10e3/uL (140-360); RED BLOOD COUNT 3.79 x10e6/uL (4.3-5.7); RED CELL DISTRIBUTION WIDTH 11.7 % (11.7-14.4)
[2019-02-11 08:28] LABS: ANION GAP 15.5 mmol/L (8-16); BLOOD UREA NITROGEN < 5 mg/dL (7-26); CALCIUM 8.6 mg/dL (8.4-10.2); CARBON DIOXIDE 19 mmol/L (22-29); CHLORIDE 102 mmol/L (98-107); CREATININE, SERUM 0.64 mg/dL (0.72-1.25); EST GLOMERULAR FILTRATION RATE > 60 ML/MIN (60-); GLUCOSE 158 mg/dL (74-118); MAGNESIUM 1.5 MG/DL (1.3-2.1); POTASSIUM 3.5 mmol/L (3.5-5.1); SODIUM 133 mmol/L (136-145)
[2019-02-11] MEDS: ZINC SULFATE 220 MG CAP PO SCH (08:30)
[2019-02-11] MEDS: MAGNESIUM OXIDE 400 MG TAB PO SCH ×2 (08:30→16:19)
[2019-02-11] MEDS: ASCORBIC ACID 500 MG TAB PO SCH ×2 (08:30→21:10)
[2019-02-11] MEDS: CLONAZEPAM 0.5 MG TAB PO SCH ×2 (08:30→21:10)
[2019-02-11] MEDS: OYST-CAL-D 500MG TABLET PO SCH ×2 (08:30→21:10)
[2019-02-11] MEDS: MULTIVITAMINS/MINERALS TAB PO SCH (08:30)
[2019-02-11 08:33] LABS: BUN/CREATININE RATIO 8 (6-25)
[2019-02-11] MEDS: MORPHINE SULFATE INJ 4 MG/ML INJ 1ML IV PRN (08:55)
[2019-02-11] MEDS: ONDANSETRON HCL INJ 2MG/ML 2ML 2 MG/ML VIAL IV PRN (08:55)
[2019-02-11] MEDS: INSULIN GLARGINE 100 UNITS/ML VIAL SQ SCH ×2 (09:21→21:23)
[2019-02-11] MEDS: INSULIN REGULAR, HUMAN 100 UNIT/1 ML 3ML VIAL SQ SCH ×4 (09:21→21:23)
--- NOTE | 2019-02-11 11:20 | NUR ---
ASSIST PT TO RESTROOM NO C/O PAIN WHILE AMBULATING.
[2019-02-11] MEDS: HYDROCODONE/APAP 7.5MG-325MG 1 EA TAB PO PRN ×2 (11:43→21:20)
[2019-02-11] MEDS ORDERED: ONDANSETRON HCL 4 MG ORAL DISINTEGRATING TAB PO PRN (14:15)
[2019-02-11] MEDS: CLONAZEPAM 0.5 MG TAB PO PRN (16:19)
--- NOTE | 2019-02-11 17:19 | Progress Note ---
DATE: 02/11/2019 SUBJECTIVE: The patient evaluated and events noted. The patient is in the room. He is alert, awake, and oriented to situation. He is calm and cooperative. The patient states that he did not sleep well yesterday. He says that in fact he was tearful last night. He denies any suicidal or homicidal ideation. No paranoia elicited. Denies any hallucination. Denies any side effects from medication. He wants a referral for inpatient psychiatry and resources were given to the patient. ASSESSMENT: 1. Major depressive disorder, recurrent, moderate. 2. Panic disorder with agoraphobia. 3. Alcohol abuse. PLAN: 1. Continue with Klonopin 0.5 mg three times a day as needed. 2. Continue Klonopin 0.5 mg p.o. q.12 hours. 3. Increase Remeron to 15 mg p.o. at bedtime. 4. Monitor for mood. 5. Supportive therapy. 6. Recommend total abstinence from alcohol and drugs. Dictated by Elvira Baker PA-C Connor Gomez MD QTV/MODL /[id number]
--- NOTE | 2019-02-11 19:15 | NUR ---
Rounding done and report received. Patient is asleep in bed, respirations even & unlabored, no distress noted. IV fluids running, right hand IV 20g patent and no infiltration noted. Call light within reach, side rails x2 raised and bed set to lowest position.
--- NOTE | 2019-02-11 19:20 | NUR ---
report given to oncoming nurse for continued care
[2019-02-11] MEDS ORDERED: MIRTAZAPINE 15 MG TAB PO SCH (21:00)
--- NOTE | 2019-02-11 21:27 | NUR ---
Per MD order, perineal wound dressing changed
[2019-02-12 00:24] VITALS: BP 130/80
[2019-02-12 04:15] LABS: BASOPHILS # (AUTO) 0.1 (0.0-0.1); BASOPHILS % 0.4 % (0.0-1.0); EOSINOPHILS # (AUTO) 0.5 (0.0-0.4); EOSINOPHILS % 2.9 % (0.0-6.0); HEMATOCRIT 31.4 % (38.2-49.6); HEMOGLOBIN 11.4 g/dL (14.0-18.0); LYMPHOCYTES # (AUTO) 3.6 (1.0-3.2); LYMPHOCYTES % 22.7 % (18.0-39.1); MEAN CORPUSCULAR HEMOGLOBIN 30.6 pg (28-32); MEAN CORPUSCULAR HGB CONC 36.3 g/dL (31-35); MEAN CORPUSCULAR VOLUME 84.4 fL (81-99); MONOCYTES # (AUTO) 1.7 (0.2-0.8); MONOCYTES % 11.1 % (4.4-11.3); NEUTROPHILS # (AUTO) 9.5 (2.1-6.9); PLATELET COUNT 485 x10e3/uL (140-360); RED BLOOD COUNT 3.72 x10e6/uL (4.3-5.7); RED CELL DISTRIBUTION WIDTH 11.7 % (11.7-14.4)
[2019-02-12] MEDS: SODIUM CHLORIDE 0.9% 1000ML 1,000 ML IV SCH ×2 (04:25→10:20)
[2019-02-12 04:31] LABS: BLOOD UREA NITROGEN 5 mg/dL (7-26); BUN/CREATININE RATIO 9 (6-25); CALCIUM 8.6 mg/dL (8.4-10.2); CARBON DIOXIDE 25 mmol/L (22-29); CHLORIDE 105 mmol/L (98-107); CREATININE, SERUM 0.57 mg/dL (0.72-1.25); EST GLOMERULAR FILTRATION RATE > 60 ML/MIN (60-); GLUCOSE 149 mg/dL (74-118); SODIUM 139 mmol/L (136-145)
[2019-02-12 04:47] VITALS: BP 136/81
--- NOTE | 2019-02-12 04:51 | NUR ---
Dr. Don was paged to report vanc trough
[2019-02-12] MEDS: VANCOMYCIN HCL 2 GM in SODIUM CHLORIDE 0.9% 500ML 500 ML IV SCH (05:38)
--- NOTE | 2019-02-12 05:38 | NUR ---
Vanc trough reported to CREMATORY OPERATOR covering for Dr. Gomez, order was given to administer
[2019-02-12] MEDS ORDERED: ASCORBIC ACID500 MG PO (07:23)
[2019-02-12] MEDS ORDERED: CLONAZEPAM0.5 MG PO (07:23)
[2019-02-12] MEDS ORDERED: Multivitamins/Minerals PO (07:23)
[2019-02-12] MEDS ORDERED: OSCAL D PO (07:23)
[2019-02-12] MEDS ORDERED: MAGNESIUM OXID400 MG PO (07:23)
[2019-02-12] MEDS ORDERED: TYLENOL WITH C1 EACH PO (07:23)
[2019-02-12] MEDS ORDERED: MIRTAZAPINE15 MG PO (07:23)
[2019-02-12] MEDS ORDERED: ZINC SULFATE220 M1 PO (07:23)
[2019-02-12] MEDS ORDERED: POTASSIUM CHLORIDE 20 MEQ TAB CR PO ONE (07:30)
--- NOTE | 2019-02-12 07:32 | NUR ---
RECEIVED PATIENT ASLEEP IN BED AT THIS TIME. NO SIGNS OF DISTRESS. BED LOW, WHEELS LOCKED, SIDE RAILS X2. CALL LIGHT IN REACH. WILL CONTINUE TO MONITOR PATIENT.
[2019-02-12 08:08] VITALS: BP 124/78
[2019-02-12] MEDS: CLONAZEPAM 0.5 MG TAB PO SCH (08:29)
[2019-02-12] MEDS: ZINC SULFATE 220 MG CAP PO SCH (08:30)
[2019-02-12] MEDS: MULTIVITAMINS/MINERALS TAB PO SCH (08:30)
[2019-02-12] MEDS: MAGNESIUM OXIDE 400 MG TAB PO SCH (08:30)
[2019-02-12] MEDS: ASCORBIC ACID 500 MG TAB PO SCH (08:30)
[2019-02-12] MEDS: OYST-CAL-D 500MG TABLET PO SCH (08:30)
[2019-02-12] MEDS: CLINDAMYCIN PHOS 900MG/ 50ML 50 ML IV SCH ×2 (09:04→14:15)
[2019-02-12] MEDS: INSULIN REGULAR, HUMAN 100 UNIT/1 ML 3ML VIAL SQ SCH ×2 (09:35→12:57)
[2019-02-12] MEDS: INSULIN GLARGINE 100 UNITS/ML VIAL SQ SCH (09:36)
--- NOTE | 2019-02-12 10:00 | NUR ---
PATIENT A/O X3, EVEN RESPIRATIONS ON RA. BOWEL SOUNDS ACTIVE, NO EDEMA. RECTAL DRESSINGS CLEAN, DRY, AND INTACT. RIGHT FA 20 GAUGE IV WITH IVF @ 125 CC/HR. PATIENT AMBULATORY VOIDS IN TOILET/URINAL. NO SIGNS OF DISTRESS OR PAIN AT THIS TIME. VITAL SIGNS STABLE WILL CONTINUE TO MONITOR PATIENT.
[2019-02-12 10:10] VITALS: BP 124/78
[2019-02-12 11:56] VITALS: BP 141/89
[2019-02-12] MEDS ORDERED: CLEOCIN HCL150 MG PO (12:04)
[2019-02-12 12:08] LABS: BAND NEUTROPHILS % (MANUAL) 1 %; EOSINOPHILS % (MANUAL) 3 % (0-7); LYMPHOCYTES % (MANUAL) 26 % (19-48); MONOCYTES % (MANUAL) 9 % (3.4-9.0); NEUTROPHILS % (MANUAL) 61 % (40-74)
[2019-02-12 12:09] LABS: PLATELET ESTIMATE ADEQUATE; PLATELET MORPHOLOGY COMMENT NORMAL; RBC MORPHOLOGY COMMENT NORMAL
--- NOTE | 2019-02-12 13:15 | NUR ---
NOTIFIED MYRA MILLER THAT PATIENT WANTED HOME HEALTH SET UP PRIOR TO DISCHARGE. CASE MANAGEMENT CONSULTED.
--- NOTE | 2019-02-12 13:58 | NUR ---
CM SPOKE TO PATIENT AND PATIENT AT BEDSIDE REGARDING HOME HEALTH SERVICES. PATIENT AND PATIENT AGREED TO HOME HEALTH FOR WOUND CARE SERVICES. PATIENT GIVEN CHOICES FOR IN NETWORK AND OUT OF NETWORK. APTIENT CHOSE IN NETWORK: [facility]. CLINICAL SENT TO [facility]. PATIENT ACCEPTED. [employer] [facility] Address: [address] [place] [address], [place] [id number] FAX: [phone] PATIENT TO CALL [facility] NUCLEAR RADIOLOGIST IF HOME HEALTH DOES NOT CONTACT THEM 48 HOURS POST DISCHARGE. NUCLEAR RADIOLOGIST: CORKY BROWN [phone] Addendum: 02/12/19 at 1400 by Corky Castillo CM CHOICE LETTER SIGNED AND PLACED IN CHART
--- NOTE | 2019-02-12 14:00 | NUR ---
DISCHARGE DISPOSITION: PATIENT DISCHARGING HOME WITH HOME HEALTH FOR WOUND CARE SERVICES FROM: [facility] Address: [address] [place] [address], [place] [address] FAX: [phone] PATIENT TO CALL [facility] RAILROAD BRAKE REPAIRER IF HOME HEALTH DOES NOT CONTACT THEM 48 HOURS POST DISCHARGE. RAILROAD BRAKE REPAIRER: CORKY BROWN [phone]
[2019-02-12] MEDS ORDERED: REMERON30 MG PO (14:55)
--- NOTE | 2019-02-12 15:46 | NUR ---
PATIENT DISCHARGED FROM FACILITY. PATIENT GATHERED ALL PERSONAL BELONGINGS, DISCHARGE INSTRUCTIONS, PRESCRIPTIONS, AND FOLLOW UP INFORMATION. LEFT UNIT IN WHEELCHAIR AND WENT HOME VIA PRIVATE AUTO. NO SIGNS OF DISTRESS WHEN LEAVING FACILITY.
[2019-02-12] MEDS ORDERED: PNEUMOCOCCAL VACCINE POLYVALENT 23 MCG/0.5 ML VIAL IM ONE (16:00)
[2019-02-12 16:01] VITALS: BP 132/84
--- NOTE | 2019-02-12 18:19 | Progress Note ---
DATE: 02/12/2019 SUBJECTIVE: The patient is evaluated and events noted. The patient is in the room with the . The patient is alert, awake, and oriented to situation. He stated his depression is better. He is having lot of anxiety. He continues to complain of poor sleep, slept only two hours yesterday. He denies any hallucination. He complained of poor appetite. He denies any side effects from medication. ASSESSMENT: 1. Major depressive disorder, recurrent. 2. Panic disorder with agoraphobia. 3. Cannabinoid abuse. PLAN: 1. Continue Klonopin 0.5 mg three times a day as needed. 2. Continue with Klonopin 0.5 mg p.o. q.12 hours. 3. Continue Ativan p.r.n. IV. 4. Increase Remeron to 30 mg p.o. at bedtime. 5. Monitor for mood. 6. Supportive therapy. 7. Recommend followup with outpatient Psychiatry. Dictated by Elvira Baker PA-C Anuja Huddleston MD QTV/MODL /[id number]
[2019-02-12] MEDS ORDERED: MIRTAZAPINE 15 MG TAB PO SCH (21:00)
--- NOTE | 2019-02-13 04:57 | Discharge Summary ---
ADMISSION DIAGNOSES: Perirectal abscess with sepsis, type 2 diabetes, hyponatremia, hypokalemia, urinary tract infection present on admission, and cannabis use. DISCHARGE DIAGNOSES: Perirectal abscess with sepsis, type 2 diabetes, hyponatremia, hypokalemia, urinary tract infection present on admission, cannabis use, and Ingrid gangrene. HISTORY: The patient has a history of type 2 diabetes. 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 FAMILY HISTORY: The patient's mom and brother have diabetes. The patient's mom and sister had a stroke. SOCIAL HISTORY: The patient admits to occasional alcohol use and marijuana use about a day ago. HOSPITAL COURSE: A 28-year-old male complains of perirectal pain that began while sitting 2 days ago. His popped it the day before admission and got pus out. After she popped it, the wound got worse and he developed chills and increased pain. He has had similar episodes in the past, but after his popped it the wound went away. On admission, patient was started on vancomycin and Flagyl. The patient got an I and D on admission. Chest x-ray was negative. So on 02/06, he had an I and D of the perianal abscess. The patient felt better, had packing in place, but the next day started to complain of pain again. So, CT of the pelvis was ordered that showed multiple linear air collections and associated subcutaneous fat stranding extending anteriorly into the perineum to the base of the scrotum. Findings are worrisome for Ingrid gangrene. So per Surgery recommendation, patient was taken back to the OR on 02/08 and had debridement of perianal fasciitis from Ingrid gangrene. The patient tolerated well. Both wounds now had packing. Wound culture showed probable skin harris. No further workup and possible anaerobes. The patient will discharge home with Cleocin per ID recommendation and wound care orders with packing per Surgery recommendation. Home health was set up. The patient will discharge home with family. The patient understands discharge instructions and agrees to plan. He was also given a prescription for Tylenol No. 3, ascorbic acid, clonazepam, magnesium, Remeron, multivitamin, Os-Ken D, and zinc. Dictated by Kaye Izquierdo, MYRA MD REY Carmichael/NADIR /[id number]
== END 2019-02-12 15:46 | disposition home health service (06) | DRG 854 ==
LOC: ER 23:38 → ERHOLD 02-06 03:55 → MED/SURG 02-06 17:23
PROVIDERS: ADMIT Internal Medicine; ATTEND Internal Medicine
PROC: 0D9Q0ZX Drainage of Anus, Open Approach, Diagnostic (ICD-10-PCS; principal; 2019-02-06 15:04)
PROC: 0JDB0ZZ Extraction of Perineum Subcutaneous Tissue and Fascia, Open Approach (ICD-10-PCS; 2019-02-08)
DX: A41.9 Sepsis, unspecified organism (principal); K61.1 Rectal abscess; E87.1 Hypo-osmolality and hyponatremia; N39.0 Urinary tract infection, site not specified; F33.1 Major depressive disorder, recurrent, moderate; N49.3 Fournier gangrene; N18.9 Chronic kidney disease, unspecified; Z89.022 Acquired absence of left finger(s); Z83.3 Family history of diabetes mellitus; Z82.49 Family history of ischemic heart disease and other diseases of the circulatory system; E11.22 Type 2 diabetes mellitus with diabetic chronic kidney disease; E11.65 Type 2 diabetes mellitus with hyperglycemia; I12.9 Hypertensive chronic kidney disease with stage 1 through stage 4 chronic kidney disease, or unspecified chronic kidney disease; N18.1 Chronic kidney disease, stage 1; Z82.3 Family history of stroke; E87.6 Hypokalemia; F40.01 Agoraphobia with panic disorder; F12.10 Cannabis abuse, uncomplicated; F10.10 Alcohol abuse, uncomplicated; E83.51 Hypocalcemia; B95.8 Unspecified staphylococcus as the cause of diseases classified elsewhere; Z79.84 Long term (current) use of oral hypoglycemic drugs
CPT/HCPCS: 36415; 71045; 72193; 80048; 80053; 80202; 80307; 81001; 82948; 83036; 83605; 83735; 83880; 85025; 87040; 87071; 87075; 87086; 87205; 90732; 99284; J1100; J1815; J2001; J2060; J2250; J2270; J2405; J2543; J3370; J7030; J7040; J7120; J7121; Q9967

== ENCOUNTER 2019-02-20 11:33 | Observation (INO) | payer OTHER ==
[~2019-02-20] VITALS: Ht 167.6 cm; Wt 85.8 kg
[~2019-02-20 11:33] MED LIST: ASCORBIC ACID500 MG PO; BASAGLAR; CLEOCIN HCL150 MG PO; CLONAZEPAM0.5 MG PO; MAGNESIUM OXID400 MG PO; METFORMIN HCL500 M1 PO; MIRTAZAPINE15 MG PO; Multivitamins/Minerals PO; OSCAL D PO; REMERON30 MG PO; TYLENOL WITH C1 EACH PO; ZINC SULFATE220 M1 PO
[2019-02-20 12:29] LABS: INR 0.97; PROTHROMBIN TIME 13.4 seconds (11.9-14.5)
[2019-02-20 12:30] LABS: PARTIAL THROMBOPLASTIN TIME 30.3 seconds (23.8-35.5)
[2019-02-20 12:34] LABS: ALANINE AMINOTRANSFERASE 18 IU/L (0-55); ALBUMIN 3.7 g/dL (3.5-5.0); ALBUMIN/GLOBULIN RATIO 0.8 (0.8-2.0); ALKALINE PHOSPHATASE 91 IU/L (40-150); ANION GAP 15.3 mmol/L (8-16); BLOOD UREA NITROGEN 12 mg/dL (7-26); BUN/CREATININE RATIO 17 (6-25); CALCIUM 10.1 mg/dL (8.4-10.2); CARBON DIOXIDE 23 mmol/L (22-29); CHLORIDE 101 mmol/L (98-107); CREATININE, SERUM 0.72 mg/dL (0.72-1.25); EST GLOMERULAR FILTRATION RATE > 60 ML/MIN (60-); GLUCOSE 269 mg/dL (74-118); POTASSIUM 4.3 mmol/L (3.5-5.1); SODIUM 135 mmol/L (136-145)
[2019-02-20 12:43] LABS: BASOPHILS % 0.2 % (0.0-1.0); EOSINOPHILS # (AUTO) 0.2 (0.0-0.4); EOSINOPHILS % 1.5 % (0.0-6.0); HEMATOCRIT 39.5 % (38.2-49.6); HEMOGLOBIN 14.1 g/dL (14.0-18.0); LYMPHOCYTES # (AUTO) 3.2 (1.0-3.2); LYMPHOCYTES % 19.9 % (18.0-39.1); MEAN CORPUSCULAR HEMOGLOBIN 30.1 pg (28-32); MEAN CORPUSCULAR HGB CONC 35.7 g/dL (31-35); MEAN CORPUSCULAR VOLUME 84.4 fL (81-99); MONOCYTES % 6.3 % (4.4-11.3); NEUTROPHILS # (AUTO) 11.6 (2.1-6.9); NEUTROPHILS % 71.4 % (38.7-80.0); PLATELET COUNT 616 x10e3/uL (140-360); RED BLOOD COUNT 4.68 x10e6/uL (4.3-5.7); RED CELL DISTRIBUTION WIDTH 11.9 % (11.7-14.4)
[2019-02-20] MEDS ORDERED: SODIUM CHLORIDE 0.9% 1000ML 1,000 ML IV SCH (13:00)
[2019-02-20] MEDS ORDERED: MORPHINE SULFATE INJ 4 MG/ML INJ 1ML IV PRN (13:30)
[2019-02-20] MEDS: ONDANSETRON HCL INJ 2MG/ML 2ML 2 MG/ML VIAL IV PRN ×2 (14:04→18:47)
[2019-02-20] MEDS ORDERED: IBUPROFEN 600 MG TAB PO PRN (14:15)
[2019-02-20] MEDS ORDERED: DEXTROSE 50% SYRINGE 50 ML IV PRN (14:15)
[2019-02-20] MEDS: SODIUM CHLORIDE 0.9% 1000ML 1,000 ML IV SCH (14:40)
[2019-02-20] MEDS: PIPER-TAZ 3.375 GM 50 ML IV SCH ×2 (14:40→21:10)
[2019-02-20 15:18] VITALS: BP 116/79
[2019-02-20 15:35] VITALS: BP 112/80
[2019-02-20] MEDS: VANCOMYCIN 1GM/NS 250 ML 250 ML IV SCH (15:44)
[2019-02-20] MEDS: INSULIN REGULAR, HUMAN 100 UNIT/1 ML 3ML VIAL SQ SCH ×2 (16:05→21:10)
[2019-02-20 16:31] VITALS: BP 112/80
[2019-02-20 16:37] VITALS: BP 112/80
[2019-02-20] MEDS ORDERED: CLONAZEPAM 0.5 MG TAB PO PRN (18:15)
[2019-02-20] MEDS ORDERED: ACETAMINOPHEN 325 MG TAB PO PRN (18:30)
[2019-02-20] MEDS ORDERED: HYDRALAZINE HCL 20 MG/ML VIAL IV PRN (18:30)
[2019-02-20] MEDS: MORPHINE SULFATE INJ 4 MG/ML INJ 1ML IV PRN (18:47)
--- NOTE | 2019-02-20 19:12 | NUR ---
RECEIVED PATIENT AAOX4, RESTING IN BED, STABLE CONDITION. DR. COLUNGA RECENTLY ROUNDED ON PATIENT, ORDERS ENTERED FOR CT OF PELVIS. AT THIS TIME NO NEEDS VOICED. BED LOCKED AND IN LOWEST POSITION, CALL LIGHT WITHIN EASY REACH. WILL CONTINUE TO MONITOR PATIENT.
[2019-02-20 20:00] VITALS: BP 130/76
--- NOTE | 2019-02-20 20:00 | NUR ---
perineal cleanse, and 4x4 gauze and abd pad applied. no further needs voiced at this time.
--- NOTE | 2019-02-20 20:16 | NUR ---
patient returned from radiology in stable condition, returned to bed. bed locked and in lowest position, call light within reach.
--- NOTE | 2019-02-20 20:46 | Diagnostic Imaging Report ---
EXAMINATION: CT of the pelvis with contrast. TECHNIQUE: Spiral CT images of the pelvis were performed from the iliac crests to the lesser trochanters after the intravenous administration of 100 cc of Isovue-370 and the oral administration of water. Coronal and sagittal reformatted images were obtained. COMPARISON: CT pelvis 02/07/2019 CLINICAL HISTORY:Access/boil on buttocks, status post incision and drainage 02/06/2019 DISCUSSION: PELVIS: PELVIC ORGANS/BLADDER: Bladder is moderately to markedly distended, without focal lesions or wall thickening. Prostate is unremarkable. PERITONEUM/RETROPERITONEUM: No free air or fluid. LYMPH NODES: Enlarged right inguinal lymph node which measures 1.5 cm in short axis. No distal retroperitoneal, pelvic or left inguinal adenopathy. VESSELS: The visualized portions of the distal aorta, and iliac vessels are unremarkable. GI TRACT: The visualized bowel shows no dilation or obstruction. Appendix is well identified and normal in caliber. BONES AND SOFT TISSUE: No aggressive lytic lesions. Interval debridement of the perineal wound Ingrid. There is a 3.4 x 1.9 cm soft tissue density at the surgical site without drainable fluid collections or subcutaneous air. Interval resolution of previously noted linear air collections and associated subcutaneous fat stranding extend anteriorly in the perineum to the base of the scrotum. No well-defined enhancing fluid collections. IMPRESSION: Interval debridement of the perineal Ingrid abscess. Small amount of soft tissue density at the surgical site. Subcutaneous air is no longer seen. No intracavitary fluid collections or abscess. Signed by: Dr. Christy Angulo M.D. on 02/20/2019 8:43 PM
[2019-02-20] MEDS ORDERED: OSCAL D 500 MG PO SCH (21:00)
[2019-02-20] MEDS ORDERED: MIRTAZAPINE 15 MG TAB PO SCH (21:00)
[2019-02-20] MEDS: OYST-CAL-D 500MG TABLET PO SCH (21:10)
[2019-02-20] MEDS: ASCORBIC ACID 500 MG TAB PO SCH (21:10)
[2019-02-20] MEDS: ACETAMINOPHEN/CODEINE 300MG - 30MG TAB PO PRN (21:21)
[2019-02-20 21:48] VITALS: BP 130/76
[2019-02-21] VITALS (7 sets, daily range): BP systolic 124–136; BP diastolic 74–88
--- NOTE | 2019-02-21 01:22 | Consultation ---
DATE OF CONSULTATION: 02/20/2019 CHIEF COMPLAINT: Perineal pain. 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 The patient has complained of bloody drainage from the wound with increasing pain. He denies fever or chills. PAST MEDICAL HISTORY: Positive for diabetes. SURGICAL HISTORY: Positive for perineal debridement for Ingrid gangrene few weeks back. ALLERGIES: NO DRUG ALLERGIES. SOCIAL HABITS: He denies smoking or alcohol abuse. REVIEW OF SYSTEMS: No chest pain or shortness of breath. PHYSICAL EXAMINATION: VITAL SIGNS: Stable. He is afebrile. GENERAL: He is awake, alert, in moderate to severe discomfort. HEENT: Sclerae anicteric. NECK: Supple. LUNGS: Clear. HEART: Regular rate and rhythm. ABDOMEN: Soft and nontender. Perineum reveals an open wound at the base of the scrotum with some necrotic exudate tissue, but no significant swelling or abscess formation. Wound is wide open. LABORATORY DATA: White cell count 16, hemoglobin of 14. Creatinine of 0.7. ASSESSMENT: Open perineal wound with some serosanguineous drainage. PLAN: CT of the pelvis to rule out residual infection. Continue antibiotics as ordered. Erik Camargo MD DNMarc/MODL /[id number]
[2019-02-21] MEDS: SODIUM CHLORIDE 0.9% 1000ML 1,000 ML IV SCH ×4 (01:46→20:32)
[2019-02-21] MEDS: MORPHINE SULFATE INJ 4 MG/ML INJ 1ML IV PRN ×5 (01:46→21:46)
[2019-02-21 03:43] LABS: BASOPHILS % 0.3 % (0.0-1.0); EOSINOPHILS # (AUTO) 0.3 (0.0-0.4); EOSINOPHILS % 2.3 % (0.0-6.0); HEMATOCRIT 32.4 % (38.2-49.6); HEMOGLOBIN 11.5 g/dL (14.0-18.0); LYMPHOCYTES # (AUTO) 3.5 (1.0-3.2); LYMPHOCYTES % 28.2 % (18.0-39.1); MEAN CORPUSCULAR HEMOGLOBIN 30.3 pg (28-32); MEAN CORPUSCULAR HGB CONC 35.5 g/dL (31-35); MEAN CORPUSCULAR VOLUME 85.3 fL (81-99); MONOCYTES # (AUTO) 0.9 (0.2-0.8); MONOCYTES % 7.5 % (4.4-11.3); NEUTROPHILS # (AUTO) 7.6 (2.1-6.9); NEUTROPHILS % 61.3 % (38.7-80.0); PLATELET COUNT 482 x10e3/uL (140-360); RED CELL DISTRIBUTION WIDTH 11.9 % (11.7-14.4)
[2019-02-21 04:00] LABS: ANION GAP 10.9 mmol/L (8-16); BLOOD UREA NITROGEN 7 mg/dL (7-26); BUN/CREATININE RATIO 10 (6-25); CALCIUM 8.8 mg/dL (8.4-10.2); CARBON DIOXIDE 25 mmol/L (22-29); CHLORIDE 104 mmol/L (98-107); CREATININE, SERUM 0.71 mg/dL (0.72-1.25); EST GLOMERULAR FILTRATION RATE > 60 ML/MIN (60-); GLUCOSE 280 mg/dL (74-118); MAGNESIUM 1.7 MG/DL (1.3-2.1); POTASSIUM 3.9 mmol/L (3.5-5.1); SODIUM 136 mmol/L (136-145)
[2019-02-21] MEDS: PIPER-TAZ 3.375 GM 50 ML IV SCH ×4 (04:07→21:26)
[2019-02-21] MEDS: VANCOMYCIN 1GM/NS 250 ML 250 ML IV SCH ×2 (04:42→14:53)
--- NOTE | 2019-02-21 06:59 | NUR ---
report given to oncoming nurse for continuity of care. patient in stable condition.
--- NOTE | 2019-02-21 07:01 | NUR ---
irrigation clamped per Dr Sánchez
[2019-02-21] MEDS: FAMOTIDINE 20 MG TAB PO SCH ×2 (07:34→16:44)
[2019-02-21] MEDS: INSULIN REGULAR, HUMAN 100 UNIT/1 ML 3ML VIAL SQ SCH (08:44)
[2019-02-21] MEDS: ASCORBIC ACID 500 MG TAB PO SCH ×2 (08:46→20:31)
[2019-02-21] MEDS: OYST-CAL-D 500MG TABLET PO SCH ×2 (08:46→20:31)
[2019-02-21] MEDS: ZINC SULFATE 220 MG CAP PO SCH ×2 (08:46→16:45)
[2019-02-21] MEDS: MAGNESIUM OXIDE 400 MG TAB PO SCH ×2 (08:46→16:44)
[2019-02-21] MEDS: MULTIVITAMINS/MINERALS TAB PO SCH (08:46)
[2019-02-21] MEDS ORDERED: NON-FORMULARY MEDICATION ([Multivitamins/Minerals] 1 TAB) PO SCH (09:00)
[2019-02-21] MEDS: INSULIN LISPRO 100 UNIT/1 ML 3ML VIAL SQ SCH ×3 (12:00→20:29)
--- NOTE | 2019-02-21 12:31 | NUR ---
WOUND CARE CONSULTATION - INITIAL EVALUATION Patient admitted from Home for perineal ulcer worsening. HX: S/P Ingrid Gangrene debridement of perineal area on 02/08/19 Dr. Camargo On case to evaluate and treat. Wound Cx: Gram + Cocci in Pairs and Chains, Gram - Bacilli. CT of Pelvis: No Fluid Collections/ Abscess noted. LABS: WBC12.47 HGB11.5 NEUT%61.3 BIF844 ALB3.7 PATIENT VISIT: Patient AAOX4, Calm cooperative Ambulatory Jacob Score [address] Presents with linear ulcer to perineal area. Periwound reddened, swollen with mild induration draining copious serosanguineous & purulent discharge. 20% slough and 80% granulation tissue present. Dr Don on case for IV ABX. Wound measurements and additional description documented on Wound Assessment Note section and is linked to this note. No Pressure Ulcers identified. Education provided related to home care, perineal care and wound care products reviewed. Verbalized understanding and provided typed paper reviewing treatment plan. IMPRESSION: Perineal Area - Cellulitis of Surgical Debridement Ulcer Site. RECOMMENDATION: 1. Perineal Area - S/P Abscession with Cellulitis - Cleanse wound with NS and Hibiclens Soap q12h - Apply Maxsorb Ag+ ( Silver Alginate) lightly packed and cover with ABD Pad and Mesh underwear. Thank you for Consulting with Wound Care. Addendum: 02/21/19 at 1243 by Nate Morris RN Amended: Links added.
--- NOTE | 2019-02-21 15:45 | Consultation ---
DATE OF CONSULTATION: 02/21/2019 Psychiatric Consultation REASON FOR CONSULTATION: To evaluate the patient's mood. HISTORY OF PRESENT ILLNESS: The patient is a 28-year-old male admitted to the hospital for leukocytosis and infection. Psychiatric consultation is called to evaluate the patient's mood. As per medical record, the patient has history of diabetes. The patient was seen by Psychiatry few weeks ago for similar presentation. Upon evaluation today, the patient is found to be in the room by himself. He is alert, awake, and oriented to situation. The patient continued to report feeling depressed and anxious. He claims that he has been taking Remeron 15 mg at home and he reports poor sleep at night, sleeping about 4 hours. He claims that his appetite has improved. He admits to feeling hopeless and helpless, but denies any suicidal ideation or homicidal ideation. He denies any hallucination. PAST PSYCHIATRIC HISTORY: The patient has history of anxiety, depression, and panic disorders. He attempted suicide once in the past. He does not drink alcohol, but admits to taking cannabinoids. FAMILY HISTORY: His mom attempted suicide. SOCIAL HISTORY: The patient lives with his and his dad. MENTAL STATUS EXAM: The patient is male. He is alert, awake, and oriented to situation. His mood is anxious and depressed with blunt affect. Psychomotor state is passive. He denies any suicidal or homicidal ideation. Denies any hallucination. Thought process is concrete. No delusion or paranoia elicited. Insight and judgment are fair. Memory appears to be grossly intact. CURRENT MEDICATIONS: 1. Sodium chloride. 2. Zosyn. 3. Multivitamin. 4. Calcium carbonate. 5. Zinc sulfate. 6. Magnesium oxide. 7. Ascorbic acid. 8. Morphine. 9. Famotidine. 10. Vancomycin. 11. Tylenol No. 3. 12. Klonopin 0.5 mg three times a day as needed. 13. Ondansetron. 14. Remeron 15 mg p.o. at bedtime. 15. Insulin. 16. Hydralazine. 17. Acetaminophen. 18. Ibuprofen. 19. Dextrose. LABORATORY DATA: WBC is 12.47, RBC 3.8, hemoglobin 11.5, hematocrit 32.4, and platelets 482. Sodium 136, potassium 3.9, chloride 104, CO2 25, BUN 7, and creatinine 0.71. ASSESSMENT: 1. Major depressive disorder, recurrent, moderate. 2. Panic disorder with agoraphobia. 3. Cannabinoid abuse. PLAN: 1. Plan is to increase Remeron from 15 mg p.o. at bedtime to 30 mg p.o. at bedtime. 2. Continue with Klonopin p.r.n. 3. Monitor for mood. 4. Supportive therapy. 5. Recommend follow up with outpatient psychiatry. Thank you for this consultation. Dictated by Elvira Baker PA-C Anuja Huddleston MD QTV/MODL /[id number]
[2019-02-21] MEDS: INSULIN GLARGINE 100 UNITS/ML VIAL SQ SCH (20:29)
[2019-02-21] MEDS: MIRTAZAPINE 15 MG TAB PO SCH (20:32)
--- NOTE | 2019-02-21 21:21 | Consultation ---
DATE OF CONSULTATION: 02/21/2019 REASON FOR CONSULTATION: Perianal abscess. HISTORY OF PRESENT ILLNESS: This patient is a 28-year-old male with history of diabetes mellitus, had Ingrid's recently, underwent I and D. The patient came back with drainage from his wound. The patient was admitted. PAST MEDICAL HISTORY: Diabetes. PAST SURGICAL HISTORY: Denies. ALLERGIES: NKA. SOCIAL HISTORY: There is no smoking, drug abuse, or alcohol abuse. FAMILY HISTORY: Otherwise noncontributory. REVIEW OF SYSTEMS: HEENT: Negative. PULMONARY: Negative. CARDIAC: Negative. : Negative. SKIN: There are no other rashes. LABORATORY DATA: White count on admission was 16.2, today 12.4. Sodium 135, creatinine 0.72. His wound cultures showed gram-negative rods and gram-positive cocci. MEDICATIONS: The patient was started on Zosyn, magnesium oxide, vitamin C, and vancomycin. PHYSICAL EXAMINATION: GENERAL: He is currently alert, oriented, does not seem to be in acute distress. VITAL SIGNS: Stable, currently afebrile. HEENT: He is not icteric. NECK: Supple. No JVD. No lymphadenopathy. No thyromegaly. CHEST: Clear bilateral. HEART: S1, S2. No S3, S4, or murmur. ABDOMEN: Soft. Bowel sounds present. No tenderness. EXTREMITIES: No edema. RECTAL: Had perirectal abscess, which is status post I and D. There is some drainage on dressing noted. IMPRESSION: Status post Ingrid abscess in the patient with diabetes. We will put on vancomycin and Zosyn. I went for wound culture and sensitivity, status post I and D. Further recommendations to follow. MD NAILA Samuels/NADIR /[id number]
[2019-02-22] VITALS (8 sets, daily range): BP systolic 115–134; BP diastolic 59–78
[2019-02-22] MEDS: SODIUM CHLORIDE 0.9% 1000ML 1,000 ML IV SCH (02:08)
[2019-02-22] MEDS: VANCOMYCIN 1GM/NS 250 ML 250 ML IV SCH ×2 (02:08→15:34)
[2019-02-22 02:45] LABS: BASOPHILS % 0.3 % (0.0-1.0); EOSINOPHILS # (AUTO) 0.2 (0.0-0.4); EOSINOPHILS % 1.7 % (0.0-6.0); HEMATOCRIT 30.2 % (38.2-49.6); HEMOGLOBIN 10.7 g/dL (14.0-18.0); LYMPHOCYTES # (AUTO) 3.4 (1.0-3.2); LYMPHOCYTES % 28.3 % (18.0-39.1); MEAN CORPUSCULAR HEMOGLOBIN 30.1 pg (28-32); MEAN CORPUSCULAR HGB CONC 35.4 g/dL (31-35); MEAN CORPUSCULAR VOLUME 85.1 fL (81-99); MONOCYTES # (AUTO) 0.8 (0.2-0.8); MONOCYTES % 6.6 % (4.4-11.3); NEUTROPHILS # (AUTO) 7.6 (2.1-6.9); NEUTROPHILS % 62.7 % (38.7-80.0); PLATELET COUNT 454 x10e3/uL (140-360); RED BLOOD COUNT 3.55 x10e6/uL (4.3-5.7); RED CELL DISTRIBUTION WIDTH 11.7 % (11.7-14.4)
[2019-02-22 03:02] LABS: ANION GAP 10.6 mmol/L (8-16); BLOOD UREA NITROGEN 7 mg/dL (7-26); BUN/CREATININE RATIO 11 (6-25); CALCIUM 8.5 mg/dL (8.4-10.2); CARBON DIOXIDE 25 mmol/L (22-29); CHLORIDE 102 mmol/L (98-107); CREATININE, SERUM 0.65 mg/dL (0.72-1.25); EST GLOMERULAR FILTRATION RATE > 60 ML/MIN (60-); GLUCOSE 241 mg/dL (74-118); MAGNESIUM 1.7 MG/DL (1.3-2.1); POTASSIUM 3.6 mmol/L (3.5-5.1); SODIUM 134 mmol/L (136-145)
[2019-02-22] MEDS: PIPER-TAZ 3.375 GM 50 ML IV SCH ×4 (04:05→21:31)
[2019-02-22] MEDS: ACETAMINOPHEN/CODEINE 300MG - 30MG TAB PO PRN ×2 (05:06→13:42)
--- NOTE | 2019-02-22 06:50 | NUR ---
rounded with warehouse shift supervisor nurse, patient resting comfortably and in no distress. call byrne within reach and bed in lowest position.
[2019-02-22] MEDS: ASCORBIC ACID 500 MG TAB PO SCH ×2 (08:00→21:30)
[2019-02-22] MEDS: MULTIVITAMINS/MINERALS TAB PO SCH (08:00)
[2019-02-22] MEDS: OYST-CAL-D 500MG TABLET PO SCH ×2 (08:00→21:30)
[2019-02-22] MEDS: FAMOTIDINE 20 MG TAB PO SCH ×2 (08:00→16:35)
[2019-02-22] MEDS: INSULIN LISPRO 100 UNIT/1 ML 3ML VIAL SQ SCH ×4 (08:00→21:00)
[2019-02-22] MEDS: ZINC SULFATE 220 MG CAP PO SCH ×2 (08:00→16:35)
[2019-02-22] MEDS: MORPHINE SULFATE INJ 4 MG/ML INJ 1ML IV PRN ×2 (08:00→19:03)
[2019-02-22] MEDS: MAGNESIUM OXIDE 400 MG TAB PO SCH ×2 (08:00→16:35)
--- NOTE | 2019-02-22 19:00 | NUR ---
report given to night clerk auditor nurse, patient aware of change and in no distress. call byrne within reach and bed in lowest position.
[2019-02-22] MEDS: INSULIN GLARGINE 100 UNITS/ML VIAL SQ SCH (21:00)
[2019-02-22] MEDS: MIRTAZAPINE 15 MG TAB PO SCH (21:30)
[2019-02-23] VITALS: BP 120/67
[2019-02-23 03:18] LABS: BASOPHILS # (AUTO) 0.1 (0.0-0.1); BASOPHILS % 0.5 % (0.0-1.0); EOSINOPHILS # (AUTO) 0.2 (0.0-0.4); EOSINOPHILS % 2.2 % (0.0-6.0); HEMATOCRIT 34.6 % (38.2-49.6); LYMPHOCYTES # (AUTO) 3.6 (1.0-3.2); LYMPHOCYTES % 33.5 % (18.0-39.1); MEAN CORPUSCULAR HEMOGLOBIN 29.8 pg (28-32); MEAN CORPUSCULAR HGB CONC 34.7 g/dL (31-35); MEAN CORPUSCULAR VOLUME 85.9 fL (81-99); MONOCYTES # (AUTO) 0.7 (0.2-0.8); MONOCYTES % 6.4 % (4.4-11.3); NEUTROPHILS # (AUTO) 6.1 (2.1-6.9); NEUTROPHILS % 56.9 % (38.7-80.0); PLATELET COUNT 513 x10e3/uL (140-360); RED BLOOD COUNT 4.03 x10e6/uL (4.3-5.7); RED CELL DISTRIBUTION WIDTH 11.8 % (11.7-14.4)
[2019-02-23] MEDS: PIPER-TAZ 3.375 GM 50 ML IV SCH (03:24)
[2019-02-23] MEDS: MORPHINE SULFATE INJ 4 MG/ML INJ 1ML IV PRN (03:24)
[2019-02-23 03:36] LABS: BLOOD UREA NITROGEN 6 mg/dL (7-26); BUN/CREATININE RATIO 9 (6-25); CALCIUM 9.2 mg/dL (8.4-10.2); CARBON DIOXIDE 26 mmol/L (22-29); CHLORIDE 101 mmol/L (98-107); EST GLOMERULAR FILTRATION RATE > 60 ML/MIN (60-); GLUCOSE 211 mg/dL (74-118); SODIUM 135 mmol/L (136-145)
[2019-02-23 04:00] VITALS: BP 114/65
--- NOTE | 2019-02-23 06:21 | NUR ---
Patient declined having his dressing changed at this time because he is sleeping. Explained dressing changes are ordered every 12 hours for optimal healing.
--- NOTE | 2019-02-23 06:50 | NUR ---
rounded with welder 2nd shift nurse, patient resting comfortably. call byrne within reach and bed in lowest position
[2019-02-23] MEDS ORDERED: TYLENOL WITH C1 EACH PO (07:59)
[2019-02-23] MEDS ORDERED: CLEOCIN HCL150 MG PO (07:59)
[2019-02-23] MEDS ORDERED: CIPRO500 MG PO (07:59)
[2019-02-23 08:20] VITALS: BP 120/68
[2019-02-23] MEDS: OYST-CAL-D 500MG TABLET PO SCH (08:20)
[2019-02-23] MEDS: MAGNESIUM OXIDE 400 MG TAB PO SCH (08:20)
[2019-02-23] MEDS: MULTIVITAMINS/MINERALS TAB PO SCH (08:20)
[2019-02-23] MEDS: ZINC SULFATE 220 MG CAP PO SCH (08:20)
[2019-02-23] MEDS: INSULIN LISPRO 100 UNIT/1 ML 3ML VIAL SQ SCH (08:20)
[2019-02-23] MEDS: ASCORBIC ACID 500 MG TAB PO SCH (08:20)
[2019-02-23] MEDS: FAMOTIDINE 20 MG TAB PO SCH (08:20)
[2019-02-23 08:47] VITALS: BP 120/68
--- NOTE | 2019-02-23 09:35 | NUR ---
SEE CM ASSESSMENT FOR FURTHER INFORMATION. CLINICAL INFO, DEMOGRAPHICS, RX FAXED TO [facility]. PT DID HAVE [facility], BUT NO LONGER WANTS THEM. NOT SATISFIED WITH THEIR CARE. SIGNED CHOICE LETTER. COPY TO PT AND ORIGINAL ON CHART [facility] [phone] FAX: [phone] CM TO FOLLOW UP ON SUNDAY WITH [facility]
--- NOTE | 2019-02-24 18:48 | Discharge Summary ---
ADMISSION DIAGNOSES: 1. Infected perineal wound status post I and D, now with fever, increased WBC, and drainage. 2. Type 2 diabetes. 3. Depression. 4. Anxiety. 5. Obesity. DISCHARGE DIAGNOSES: 1. Infected perineal wound status post I and D, now with fever, increased WBC, and drainage. 2. Type 2 diabetes. 3. Depression. 4. Anxiety. 5. Obesity. 6. Citrobacter of the left scrotal wound, present on admission. HISTORY: The patient has a history of type 2 diabetes and anxiety. 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 FAMILY HISTORY: The patient's mom and brother have diabetes. The patient's mom and sister had a stroke. SOCIAL HISTORY: The patient admits to occasional alcohol use and occasional marijuana use. HOSPITAL COURSE: A 28-year-old male who had I and D of perirectal abscess on 02/06 and I and D of perineal Ingrid's gangrene on 02/09, says he returned to the ER because of drainage from his surgical site. Once discharged home, the patient says he mowed the lawn and sweat a lot. He took a shower on the day prior to admission and says he noticed bloody yellow drainage for a plane back to the ER. On admission, the patient had a CT of the pelvis that showed debridement of the perineal Ingrid's abscess, small amount of soft tissue density at the surgical site, subcutaneous air is no longer seen. No cavity collections or abscess. Surgery saw and cleared the patient for discharge. I and D was reconsulted. The patient's scrotal wound culture came back positive for Citrobacter and previous perirectal abscess from the prior admission came back positive for Bacteroides ovatus. Per ID, the patient will discharge with Cipro and clindamycin for 21 days. He will follow up with primary care in 1-2 weeks. He was instructed to not do anything to get the wound dirty or sweaty. He will continue the same wound care. The patient understands discharge instructions and agrees to plan. Vital signs stable. The patient is afebrile. Dictated by Kaye Izquierdo NP MD REY Carmichael/STEPHANYL /[id number]
== END 2019-02-23 10:05 | disposition home or self-care (01) ==
LOC: ER 11:33 → ERHOLD 14:49 → IMCU 15:02
PROVIDERS: ADMIT Internal Medicine; ATTEND Internal Medicine
DX: T81.49XA Infection following a procedure, other surgical site, initial encounter (principal); F32.9 Major depressive disorder, single episode, unspecified; F41.9 Anxiety disorder, unspecified; E66.9 Obesity, unspecified; Z68.30 Body mass index [BMI] 30.0-30.9, adult; F12.10 Cannabis abuse, uncomplicated; F40.01 Agoraphobia with panic disorder; Z89.022 Acquired absence of left finger(s); B96.89 Other specified bacterial agents as the cause of diseases classified elsewhere
CPT/HCPCS: 36415; 72193; 80048; 80053; 80202; 82948; 83735; 83880; 85025; 85610; 85730; 87040; 87071; 87186; 87205; 99284; G0378; J1815; J1817; J2270; J2405; J2543; J3370; J7030

== ENCOUNTER 2019-04-27 09:09 | Emergency (ER) | payer SELFPAY ==
[~2019-04-27] VITALS: Ht 167.6 cm; Wt 85.7 kg
[~2019-04-27 09:09] MED LIST changes: +CIPRO500 MG PO
[2019-04-27] MEDS ORDERED: SODIUM CHLORIDE 0.9% 1000ML 1,000 ML IV STA (09:47)
[2019-04-27 10:00] LABS: BASOPHILS % 0.3 % (0.0-1.0); EOSINOPHILS # (AUTO) 0.2 (0.0-0.4); EOSINOPHILS % 1.8 % (0.0-6.0); HEMATOCRIT 36.9 % (38.2-49.6); LYMPHOCYTES # (AUTO) 2.5 (1.0-3.2); LYMPHOCYTES % 26.3 % (18.0-39.1); MEAN CORPUSCULAR HEMOGLOBIN 30.3 pg (28-32); MEAN CORPUSCULAR HGB CONC 35.2 g/dL (31-35); MONOCYTES # (AUTO) 0.8 (0.2-0.8); NEUTROPHILS % 63.2 % (38.7-80.0); PLATELET COUNT 330 x10e3/uL (140-360); RED BLOOD COUNT 4.29 x10e6/uL (4.3-5.7); RED CELL DISTRIBUTION WIDTH 12.1 % (11.7-14.4)
[2019-04-27 10:23] LABS: ALANINE AMINOTRANSFERASE 16 IU/L (0-55); ALBUMIN 4.1 g/dL (3.5-5.0); ALBUMIN/GLOBULIN RATIO 1.3 (0.8-2.0); ALKALINE PHOSPHATASE 74 IU/L (40-150); ANION GAP 14.7 mmol/L (8-16); BLOOD UREA NITROGEN 8 mg/dL (7-26); BUN/CREATININE RATIO 12 (6-25); CALCIUM 9.8 mg/dL (8.4-10.2); CARBON DIOXIDE 26 mmol/L (22-29); CHLORIDE 105 mmol/L (98-107); CREATININE, SERUM 0.69 mg/dL (0.72-1.25); EST GLOMERULAR FILTRATION RATE > 60 ML/MIN (60-); GLUCOSE 97 mg/dL (74-118); POTASSIUM 3.7 mmol/L (3.5-5.1); SODIUM 142 mmol/L (136-145)
[2019-04-27 12:15] LABS: BILIRUBIN,URINE NEGATIVE (NEGATIVE); CLARITY,URINE HAZY (CLEAR); COLOR,URINE YELLOW (YELLOW); KETONES,URINE NEGATIVE (NEGATIVE); LEUKOCYTE ESTERASE ,URINE NEGATIVE (NEGATIVE); NITRITE,URINE NEGATIVE (NEGATIVE); PROTEIN,URINE DIPSTICK NEGATIVE (NEGATIVE); URINE UROBILINOGEN 0.2 mg/dL (0.2 - 1)
[2019-04-27 12:19] LABS: BACTERIA,URINE FEW /HPF; EPITHELIAL CELLS,URINE FEW /LPF; RBC,URINE 0-5 /HPF (0-5); WBC,URINE (MAN) 0-5 /HPF (0-5)
--- NOTE | 2019-04-27 12:35 | Diagnostic Imaging Report ---
CT Abdomen And Pelvis with Intravenous Contrast INDICATION: ^RECURRENT PERINEAL ABSCESS ^[id number] ^[id number] TECHNIQUE: Thin collimation axial images obtained from the diaphragm to the level of the pubic symphysis following the uneventful administration of 100 cc of low osmolar, nonionic intravenous contrast. Dose reduction techniques used: Automated exposure control, adjustment of the mAs and/or kVp according to patient size, standardized low-dose protocol, and/or iterative reconstruction technique. RADIATION DOSE: Total DLP: 715.5 mGy*cm Estimated effective dose: (DLP x 0.015 x size factor) mSv CTDIvol has been reviewed. It is below the limits set by the Radiation Protocol Committee (RPC). COMPARISON: CT pelvis 02/20/2019. ABDOMEN FINDINGS: Lung Bases: Clear. The visualized portions of the mediastinum are normal. Liver: Normal attenuation. No evidence for mass. Gallbladder: Present and appears normal. No biliary ductal dilatation. Pancreas: Normal attenuation without mass or ductal dilatation. Spleen: Normal in size. No evidence of mass.. Adrenal Glands: The right adrenal gland is normal. Low attenuating nodule in the left adrenal gland measures 2.3 x 2.0 cm. Kidneys: Right: Normal enhancement. No soft tissue mass. No hydronephrosis. Left: Normal enhancement. No soft tissue mass. No hydronephrosis. Lymph Nodes: No enlarged abdominal or retroperitoneal lymph nodes. Aorta: Normal in diameter PELVIS FINDINGS: Bowel: Stomach: Contains food. No mural thickening. Small Bowel: Normal in caliber with normal wall thickness. Large Bowel: Mild to moderate burden of stool throughout. No mural thickening or pericolonic inflammation. No evidence of perirectal abscess. Appendix: Normal appendix. Bladder: Normal. Peritoneum/retroperitoneum: No free fluid or fluid collection. Bones: No focal osseous lesions. Soft tissues: A right perineal abscess is no longer visualized. IMPRESSION: 1. No evidence for bowel obstruction or inflammation. Normal appendix. 2. No evidence of perineal or intraperitoneal abscess. Signed by: Dr. Lore Molina MD on 04/27/2019 12:32 PM
[2019-04-27] MEDS ORDERED: BACTRIM DS TAB1 EACH PO (13:13)
[2019-04-27 13:21] VITALS: BP 107/52
[2019-04-27] MEDS ORDERED: SODIUM CHLORIDE 0.9% 50ML 50 ML ONE (14:34)
[2019-04-27] MEDS ORDERED: IOPAMIDOL 370 MG/ML 200 ML INFUS..BTL INJ ONE (14:34)
== END 2019-04-27 13:27 | disposition home or self-care (01) ==
LOC: ER 09:09
DX: Z48.01 Encounter for change or removal of surgical wound dressing (principal); E11.9 Type 2 diabetes mellitus without complications; N18.9 Chronic kidney disease, unspecified; F41.9 Anxiety disorder, unspecified; F32.9 Major depressive disorder, single episode, unspecified
CPT/HCPCS: 36415; 74177; 80053; 81001; 83605; 85025; 87040; 87071; 87086; 87205; 99284; J7030; Q9967

== ENCOUNTER 2019-05-21 21:40 | Emergency (ER) | payer OTHER ==
[~2019-05-21] VITALS: Ht 167.6 cm; Wt 85.7 kg
[~2019-05-21 21:40] MED LIST changes: +BACTRIM DS TAB1 EACH PO
[2019-05-21] MEDS ORDERED: ACETAMINOPHEN 325 MG TAB ONE (22:14)
[2019-05-21] MEDS ORDERED: ACETAMINOPHEN 325 MG TAB PO ONE (22:15)
[2019-05-21] MEDS ORDERED: LIDOCAINE 1% 5ML-MPF INJ ONE (22:15)
[2019-05-21] MEDS ORDERED: LIDOCAINE HCL 1% LOCAL INJ 20 ML VIAL ONE (22:48)
== END 2019-05-21 23:14 | disposition home or self-care (01) ==
LOC: ER 21:40
DX: L02.415 Cutaneous abscess of right lower limb (principal)
CPT/HCPCS: 99283; J2001

== ENCOUNTER 2019-05-24 16:54 | Inpatient (IN) | payer OTHER ==
[~2019-05-24] VITALS: Ht 167.6 cm; Wt 85.7 kg
[2019-05-24] MEDS ORDERED: SODIUM CHLORIDE 0.9% 1000ML 1,000 ML IV STA (17:16)
[2019-05-24] MEDS ORDERED: PIPER-TAZ 3.375 GM 50 ML IV ONE (18:00)
[2019-05-24 18:10] LABS: BASOPHILS # (AUTO) 0.1 (0.0-0.1); BASOPHILS % 0.4 % (0.0-1.0); EOSINOPHILS # (AUTO) 0.4 (0.0-0.4); EOSINOPHILS % 2.1 % (0.0-6.0); HEMATOCRIT 35.5 % (38.2-49.6); HEMOGLOBIN 12.7 g/dL (14.0-18.0); LYMPHOCYTES # (AUTO) 2.5 (1.0-3.2); LYMPHOCYTES % 14.9 % (18.0-39.1); MEAN CORPUSCULAR HEMOGLOBIN 30.4 pg (28-32); MEAN CORPUSCULAR HGB CONC 35.8 g/dL (31-35); MEAN CORPUSCULAR VOLUME 84.9 fL (81-99); MONOCYTES # (AUTO) 1.4 (0.2-0.8); MONOCYTES % 8.5 % (4.4-11.3); NEUTROPHILS # (AUTO) 12.5 (2.1-6.9); NEUTROPHILS % 73.8 % (38.7-80.0); PLATELET COUNT 333 x10e3/uL (140-360); RED BLOOD COUNT 4.18 x10e6/uL (4.3-5.7); RED CELL DISTRIBUTION WIDTH 11.5 % (11.7-14.4)
[2019-05-24 18:24] LABS: ALANINE AMINOTRANSFERASE 7 IU/L (0-55); ALBUMIN 3.7 g/dL (3.5-5.0); ALBUMIN/GLOBULIN RATIO 0.9 (0.8-2.0); ALKALINE PHOSPHATASE 96 IU/L (40-150); ANION GAP 15.8 mmol/L (8-16); BLOOD UREA NITROGEN 8 mg/dL (7-26); BUN/CREATININE RATIO 11 (6-25); CARBON DIOXIDE 25 mmol/L (22-29); CHLORIDE 99 mmol/L (98-107); CREATININE, SERUM 0.75 mg/dL (0.72-1.25); EST GLOMERULAR FILTRATION RATE > 60 ML/MIN (60-); GLUCOSE 235 mg/dL (74-118); POTASSIUM 3.8 mmol/L (3.5-5.1); SODIUM 136 mmol/L (136-145)
[2019-05-24] MEDS: VANCOMYCIN 500MG/NS 0.9% 100ML 100 ML IV SCH (18:27)
[2019-05-24] MEDS ORDERED: LORAZEPAM 1 MG TAB PO ONE ×2 (18:30→19:00)
[2019-05-24] MEDS ORDERED: ONDANSETRON HCL INJ 2MG/ML 2ML 2 MG/ML VIAL IV PRN (18:30)
[2019-05-24] MEDS ORDERED: ACETAMINOPHEN 325 MG TAB PO ONE (18:45)
[2019-05-24] MEDS ORDERED: DEXTROSE 50% SYRINGE 50 ML IV PRN (19:30)
[2019-05-24 19:48] VITALS: BP 135/75
[2019-05-24 20:01] VITALS: BP 135/75
[2019-05-24] MEDS: MORPHINE SULFATE 2 MG/ML SYR 1ML IV PRN (20:09)
[2019-05-24 20:40] VITALS: BP 135/75
[2019-05-24] MEDS: INSULIN REGULAR, HUMAN 100 UNIT/1 ML 3ML VIAL SQ SCH (21:00)
[2019-05-24] MEDS ORDERED: SODIUM CHLORIDE 0.9% 250ML 250 ML ONE (23:58)
[2019-05-25] VITALS (8 sets, daily range): BP systolic 121–137; BP diastolic 69–77
[2019-05-25] MEDS: PIPER-TAZ 3.375 GM 50 ML IV SCH ×4 (00:04→18:28)
--- NOTE | 2019-05-25 02:36 | Consultation ---
DATE OF CONSULTATION: 05/25/2019 REFERRING PHYSICIAN: Carson Aguilar MD HISTORY OF PRESENT ILLNESS: The patient is a 28-year-old male presents with complaints of pain and swelling in his right upper thigh. He says it started several days ago. He came to the emergency room where he had incision and drainage done, but the swelling has persistently gotten worse. He returned to the emergency room, was admitted to the hospital. He has not had similar problems in the past. He has not had any definite fever. PAST MEDICAL HISTORY: Significant for diabetes and bipolar disorder, depression. MEDICATIONS: At home were Cipro, clindamycin, clonazepam, magnesium, metformin, Remeron, Bactrim and Tylenol with codeine. ALLERGIES: HE HAS NO KNOWN ALLERGIES. PAST SURGICAL HISTORY: He has not had previous surgeries. FAMILY HISTORY: Noncontributory. SOCIAL HISTORY: The patient does not smoke cigarettes or drink alcohol. REVIEW OF SYSTEMS: As stated above, otherwise was negative. PHYSICAL EXAMINATION: GENERAL: The patient is awake, alert, in no distress. VITAL SIGNS: Slight tachycardia, heart rate 110, temperature 100. HEENT: Sclera is not icteric. NECK: Supple with no masses. LUNGS: Equal breath sounds are clear bilaterally. CARDIAC: Regular rate and rhythm with no murmur. ABDOMEN: Soft with no tenderness. No mass. EXTREMITIES: In the right upper medial thigh, there is erythema, induration with some purulent drainage from where the previous incision and drainage done where the wound is about 5 mm long. Pulses are palpable. NEUROLOGIC: Grossly intact. ASSESSMENT: A 28-year-old male with abscess in the right upper thigh. He need further drainage to be done and they are planning the schedule to be done in the operating room later today. Proposed surgery was explained to the patient including risks, benefits, and alternatives. He understands. He has had the opportunity to ask questions. Thank you for asking me to see Mr. Tracy. MD JEMMA Valles/NADIR /[id number]
[2019-05-25] MEDS: MORPHINE SULFATE 2 MG/ML SYR 1ML IV PRN (03:50)
[2019-05-25 06:05] LABS: BASOPHILS % 0.2 % (0.0-1.0); EOSINOPHILS # (AUTO) 0.4 (0.0-0.4); EOSINOPHILS % 2.2 % (0.0-6.0); HEMATOCRIT 32.6 % (38.2-49.6); HEMOGLOBIN 11.9 g/dL (14.0-18.0); LYMPHOCYTES # (AUTO) 3.1 (1.0-3.2); LYMPHOCYTES % 18.8 % (18.0-39.1); MEAN CORPUSCULAR HGB CONC 36.5 g/dL (31-35); MEAN CORPUSCULAR VOLUME 84.9 fL (81-99); MONOCYTES # (AUTO) 1.6 (0.2-0.8); MONOCYTES % 9.7 % (4.4-11.3); NEUTROPHILS # (AUTO) 11.3 (2.1-6.9); NEUTROPHILS % 68.4 % (38.7-80.0); PLATELET COUNT 315 x10e3/uL (140-360); RED BLOOD COUNT 3.84 x10e6/uL (4.3-5.7); RED CELL DISTRIBUTION WIDTH 11.4 % (11.7-14.4)
[2019-05-25 06:25] LABS: ANION GAP 12.5 mmol/L (8-16); BLOOD UREA NITROGEN 5 mg/dL (7-26); BUN/CREATININE RATIO 8 (6-25); CALCIUM 9.3 mg/dL (8.4-10.2); CARBON DIOXIDE 27 mmol/L (22-29); CHLORIDE 102 mmol/L (98-107); CREATININE, SERUM 0.66 mg/dL (0.72-1.25); EST GLOMERULAR FILTRATION RATE > 60 ML/MIN (60-); GLUCOSE 129 mg/dL (74-118); POTASSIUM 3.5 mmol/L (3.5-5.1); SODIUM 138 mmol/L (136-145)
[2019-05-25] MEDS ORDERED: HYDROMORPHONE 2MG/ML 2 MG/ML ML IV PRN (07:00)
[2019-05-25] MEDS: HYDROMORPHONE 1MG/1ML INJ IV PRN ×4 (07:10→21:45)
[2019-05-25] MEDS: FAMOTIDINE 20 MG TAB PO SCH ×2 (07:30→17:40)
[2019-05-25] MEDS: INSULIN REGULAR, HUMAN 100 UNIT/1 ML 3ML VIAL SQ SCH ×4 (07:30→21:24)
[2019-05-25 07:42] LABS: CHOL/HDL RATIO 3.8 (3.9-4.7)
[2019-05-25] MEDS ORDERED: CLONAZEPAM 0.5 MG TAB PO PRN (07:45)
[2019-05-25] MEDS: VANCOMYCIN 500MG/NS 0.9% 100ML 100 ML IV SCH ×2 (09:30→17:40)
[2019-05-25] MEDS ORDERED: LIDOCAINE HCL 1% LOCAL INJ 20 ML VIAL ONE (11:39)
[2019-05-25] MEDS ORDERED: BUPIVACAINE HCL 0.5% INJ 30 ML VIAL INJ ONE (11:40)
[2019-05-25] MEDS ORDERED: HYDROCODONE/APAP 5MG-325MG TAB PO PRN (12:15)
--- NOTE | 2019-05-25 12:38 | Operative Report ---
DATE OF PROCEDURE: 05/25/2019 SURGEON: Erik Hernández MD PREOPERATIVE DIAGNOSIS: Abscess, right upper thigh. POSTOPERATIVE DIAGNOSIS: Abscess, right upper thigh with necrotic subcutaneous tissue. PROCEDURES: Incision and drainage of the abscess, right upper thigh with excisional debridement of subcutaneous tissue, 5 sq cm. PARTS MANAGER: None. ANESTHESIA: General. INDICATIONS AND FINDINGS: The patient is a 28-year-old male with history of diabetes, who presents with complaints of pain and swelling in the right upper thigh. He had an incision and drainage by emergency room couple of days ago, but had worsening swelling and persistent purulence. Surgery based on the abscess cavity and subcutaneous tissue, there was some necrotic tissue at the site of the previous I and D, which was excised. Excisional debridement was about 2 x 2.5 cm. About 5 mL of purulent fluid was drained. TECHNIQUE: After adequate general anesthesia, the patient in supine position with the right leg abducted and the upper thigh elevated. The right upper thigh was prepped and draped in a sterile fashion with Betadine solution. There was an open wound with a previous incision and drainage done. This was probed, was found to extend laterally and an incision was made opening the wound along the extent of the abscess cavity to provide adequate drainage. There was some necrotic tissue at the site of the previous incision and drainage and this was excised area about 2 x 2.5 cm. About 5 mL of purulence was drained from the abscess cavity. Hemostasis achieved with electrocautery. Wound was irrigated with saline, inspected for hemostasis, which was seen to be adequate. The wound was then packed open with half-inch iodoform gauze and sterile dressing applied. The patient tolerated the procedure well. Estimated blood loss was less than 5 mL. There were no complications. All counts were correct. The patient was taken to the recovery room in satisfactory condition. MD JEMMA Valles/STEPHANYL /[id number] cc: MD Dr. Alyson Stern
[2019-05-25] MEDS ORDERED: KETOROLAC TROMETHAMINE 30 MG/ML VIAL ONE (17:33)
[2019-05-25] MEDS ORDERED: DEXAMETHASONE SOD PHOS INJ 4 MG/ML VIAL ONE (17:33)
[2019-05-25] MEDS ORDERED: LIDOCAINE HCL 2% LOCAL INJ 5 ML SDV VIAL INJ ONE (17:33)
[2019-05-25] MEDS ORDERED: DESFLURANE 240 ML BTL INH ONE (17:33)
[2019-05-25] MEDS ORDERED: ONDANSETRON HCL INJ 2MG/ML 2ML 2 MG/ML VIAL ONE (17:33)
[2019-05-25] MEDS ORDERED: PROPOFOL IV EMULSION 10 MG/ML 20 ML VIAL ONE (17:33)
[2019-05-25] MEDS: ACETAMINOPHEN 325 MG TAB PO PRN (17:55)
[2019-05-25] MEDS ORDERED: MIDAZOLAM HCL 2 MG/2 ML VIAL ONE (18:19)
[2019-05-25] MEDS ORDERED: KETAMINE HCL INJ 50 MG/ML 10 ML VIAL ONE (18:19)
[2019-05-25] MEDS ORDERED: FENTANYL CITRATE/PF 100MCG/2 ML INJ ONE (18:19)
[2019-05-25] MEDS: MIRTAZAPINE 15 MG TAB PO SCH (21:20)
[2019-05-26] VITALS (7 sets, daily range): BP systolic 111–139; BP diastolic 58–80
[2019-05-26] MEDS: PIPER-TAZ 3.375 GM 50 ML IV SCH ×4 (00:14→17:17)
[2019-05-26] MEDS: ACETAMINOPHEN 325 MG TAB PO PRN (00:29)
[2019-05-26] MEDS: VANCOMYCIN 500MG/NS 0.9% 100ML 100 ML IV SCH ×2 (06:45→18:10)
[2019-05-26] MEDS: HYDROMORPHONE 1MG/1ML INJ IV PRN ×4 (06:45→19:12)
[2019-05-26 06:58] LABS: BASOPHILS # (AUTO) 0.1 (0.0-0.1); BASOPHILS % 0.2 % (0.0-1.0); EOSINOPHILS # (AUTO) 0.1 (0.0-0.4); EOSINOPHILS % 0.7 % (0.0-6.0); HEMATOCRIT 34.1 % (38.2-49.6); LYMPHOCYTES # (AUTO) 2.5 (1.0-3.2); LYMPHOCYTES % 12.4 % (18.0-39.1); MEAN CORPUSCULAR HGB CONC 35.2 g/dL (31-35); MEAN CORPUSCULAR VOLUME 85.3 fL (81-99); MONOCYTES % 9.7 % (4.4-11.3); NEUTROPHILS # (AUTO) 15.7 (2.1-6.9); NEUTROPHILS % 76.4 % (38.7-80.0); PLATELET COUNT 320 x10e3/uL (140-360); RED CELL DISTRIBUTION WIDTH 11.2 % (11.7-14.4)
[2019-05-26 07:12] LABS: ANION GAP 16.6 mmol/L (8-16); BLOOD UREA NITROGEN 5 mg/dL (7-26); BUN/CREATININE RATIO 8 (6-25); CALCIUM 9.5 mg/dL (8.4-10.2); CARBON DIOXIDE 21 mmol/L (22-29); CHLORIDE 100 mmol/L (98-107); CREATININE, SERUM 0.65 mg/dL (0.72-1.25); EST GLOMERULAR FILTRATION RATE > 60 ML/MIN (60-); GLUCOSE 179 mg/dL (74-118); POTASSIUM 3.6 mmol/L (3.5-5.1); SODIUM 134 mmol/L (136-145)
[2019-05-26] MEDS: INSULIN REGULAR, HUMAN 100 UNIT/1 ML 3ML VIAL SQ SCH ×4 (07:30→21:01)
[2019-05-26] MEDS: FAMOTIDINE 20 MG TAB PO SCH ×2 (08:46→17:02)
[2019-05-26] MEDS: MIRTAZAPINE 15 MG TAB PO SCH (21:01)
[2019-05-27] MEDS: PIPER-TAZ 3.375 GM 50 ML IV SCH ×3 (00:15→12:00)
[2019-05-27 00:20] VITALS: BP 142/87
[2019-05-27 05:48] LABS: HEMATOCRIT 33.4 % (38.2-49.6); HEMOGLOBIN 11.9 g/dL (14.0-18.0); MEAN CORPUSCULAR HEMOGLOBIN 30.4 pg (28-32); MEAN CORPUSCULAR HGB CONC 35.6 g/dL (31-35); MEAN CORPUSCULAR VOLUME 85.2 fL (81-99); PLATELET COUNT 342 x10e3/uL (140-360); RED BLOOD COUNT 3.92 x10e6/uL (4.3-5.7); RED CELL DISTRIBUTION WIDTH 11.3 % (11.7-14.4)
[2019-05-27 06:13] VITALS: BP 139/87
[2019-05-27] MEDS: VANCOMYCIN 500MG/NS 0.9% 100ML 100 ML IV SCH (06:15)
[2019-05-27] MEDS: INSULIN REGULAR, HUMAN 100 UNIT/1 ML 3ML VIAL SQ SCH ×2 (07:30→11:30)
[2019-05-27 07:51] VITALS: BP 133/87
[2019-05-27] MEDS: FAMOTIDINE 20 MG TAB PO SCH (07:59)
[2019-05-27 08:09] VITALS: BP 133/87
[2019-05-27] MEDS ORDERED: VANCOMYCIN HCL 1.5 GM in SODIUM CHLORIDE 0.9% 250ML 300 ML IV SCH (18:00)
[2019-05-27] MEDS ORDERED: INSULIN GLARGINE 100 UNITS/ML VIAL SQ SCH (21:00)
== END 2019-05-27 13:00 | disposition left against medical advice (07) | DRG 572 ==
LOC: ER 16:54 → ERHOLD 18:25 → MED/SURG2 19:50
PROVIDERS: ADMIT Internal Medicine; ATTEND Internal Medicine
PROC: 0JBL0ZZ Excision of Right Upper Leg Subcutaneous Tissue and Fascia, Open Approach (ICD-10-PCS; principal; 2019-05-25 11:42)
DX: L02.415 Cutaneous abscess of right lower limb (principal); L03.115 Cellulitis of right lower limb; E11.9 Type 2 diabetes mellitus without complications; F31.9 Bipolar disorder, unspecified; Z79.84 Long term (current) use of oral hypoglycemic drugs; E66.9 Obesity, unspecified; Z68.30 Body mass index [BMI] 30.0-30.9, adult; F32.9 Major depressive disorder, single episode, unspecified; B95.2 Enterococcus as the cause of diseases classified elsewhere
CPT/HCPCS: 36415; 80048; 80053; 80061; 80202; 82948; 83036; 85007; 85025; 85027; 87040; 87071; 87075; 87186; 87205; 88304; 99284; J1100; J1170; J1817; J1885; J2001; J2250; J2270; J2405; J2543; J3010; J3370; J7030; J7050

== ENCOUNTER 2019-06-18 13:05 | Emergency (ER) | payer OTHER ==
[~2019-06-18] VITALS: Ht 167.6 cm; Wt 85.7 kg
== END 2019-06-18 15:52 | disposition home or self-care (01) ==
LOC: ER 13:05
DX: T81.32XA Disruption of internal operation (surgical) wound, not elsewhere classified, initial encounter (principal); E11.9 Type 2 diabetes mellitus without complications; F41.9 Anxiety disorder, unspecified; N18.9 Chronic kidney disease, unspecified; F32.9 Major depressive disorder, single episode, unspecified
CPT/HCPCS: 99283